=== PATIENT | female | born 1955 | race Caucasian/White ===

== ENCOUNTER → 2016-05-29 | Outpatient (CLI) | payer MEDICARE, MEDICAID ==
[~2016-05-29] MED LIST: /ESCI20TA OR; /QUIN20TA OR; ATEN100T OR; DARV100T OR; FLEXERIL OR; HYDR25TA6 OR; IBUP600T OR; MELOPOW PO; OMEP20TA7 OR; lovaza OR; meloxicam OR; percocet OR; quinapril OR; travatan OU
--- NOTE | 2016-05-30 17:18 | ECGEPIP ---
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
--- NOTE | 2016-06-01 21:00 | HOLTMON ---
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 Sinus rhythm with normal AV conduction was the baseline mechanism. Average HR was 63 bpm, minimum HR 51 bpm and peak HR 109bpm. There were no pauses. Rare isolated PVC's and occasional PAC's including 9 beat run of slow atrial tachycardia were present. Patient reported single episode of dyspnea and single episode of chest discomfort. Both corresponded to sinus rhythm. Relatively normal Holter monitor. Electronically Signed On 06-01-2016 20:59:32 EST by Allegra Ga
== END | disposition home or self-care (01) ==
LOC: M EKG 11:10
PROVIDERS: ATTEND Family Medicine
DX: R00.2 Palpitations (principal); R94.31 Abnormal electrocardiogram [ECG] [EKG]

== ENCOUNTER → 2017-01-11 | Outpatient (CLI) | payer MEDICARE, MEDICAID ==
[2017-01-11 10:45] LABS: MEAN CORPUSCULAR VOLUME 85.7 fl (80.0-96.0); RED CELL DISTRIBUTION WIDTH 13.3 % (11.5-14.5); WHITE BLOOD COUNT 6.5 K/mm3 (4.0-10.0)
[2017-01-11 11:04] LABS: ALBUMIN 3.7 GM/DL (3.2-5.2); ALBUMIN/GLOBULIN RATIO 0.88 (1.00-1.93); BILIRUBIN,TOTAL 0.6 MG/DL (0.2-1.0); CALCIUM LEVEL 9.6 MG/DL (8.8-10.2); CREATININE FOR GFR 1.05 MG/DL (0.55-1.02); GLOMERULAR FILTRATION RATE 56.5 (>45); POTASSIUM SERUM 3.6 MEQ/L (3.5-5.1); TOTAL PROTEIN 7.9 GM/DL (6.4-8.2)
== END ==
LOC: M LAB 09:53
PROVIDERS: ATTEND Family Medicine
DX: E11.9 Type 2 diabetes mellitus without complications (principal)

== ENCOUNTER 2017-07-08 19:32 | Emergency (ER) | payer MEDICARE, MEDICAID | END 2017-07-08 21:23 | disposition left against medical advice (07) | LOC: M ED 19:32 | DX: Z53.21 Procedure and treatment not carried out due to patient leaving prior to being seen by health care provider (principal) ==

== ENCOUNTER → 2017-11-08 | Outpatient (CLI) | payer MEDICARE, MEDICAID ==
[2017-11-08 09:50] LABS: BASO % 0.7 % (0.0-1.0); EOS # 0.2 10^3/uL (0.0-0.50); EOS % 3.6 % (0.0-3.0); HEMATOCRIT 40.4 % (36.0-47.0); HEMOGLOBIN 13.6 g/dl (12.0-15.5); IMMATURE GRANULOCYTE % 0.2 % (0-3.0); LYMPH # 2.1 10^3/uL (1.5-4.5); MEAN CORPUSCULAR HEMOGLOBIN 29.2 pg (27.0-33.0); MEAN CORPUSCULAR HGB CONC 33.7 g/dl (32.0-36.5); MEAN CORPUSCULAR VOLUME 86.7 fl (80.0-96.0); MONO # 0.3 10^3/uL (0.0-0.8); MONO % 5.6 % (0.0-5.0); NEUTROPHILS # 3.3 10^3/uL (1.8-7.7); NEUTROPHILS % 54.9 % (36.0-66.0); PLATELET COUNT, AUTOMATED 223 10^3/uL (150-450); RED BLOOD COUNT 4.66 10^6/uL (4.00-5.40); RED CELL DISTRIBUTION WIDTH 12.8 % (11.5-14.5); WHITE BLOOD COUNT 6.1 10^3/uL (4.0-10.0)
[2017-11-08 10:12] LABS: ESTIMATED AVERAGE GLUCOSE 100 MG/DL (60-110); HEMOGLOBIN A1c 5.1 %
[2017-11-08 10:44] LABS: ALBUMIN 3.4 GM/DL (3.2-5.2); ALBUMIN/GLOBULIN RATIO 0.92 (1.00-1.93); ALKALINE PHOSPHATASE 44 U/L (45-117); ALT/SGPT 35 U/L (12-78); ANION GAP 9 MEQ/L (8-16); AST/SGOT 18 U/L (7-37); BILIRUBIN,TOTAL 0.4 MG/DL (0.2-1.0); BLOOD UREA NITROGEN 19 MG/DL (7-18); CARBON DIOXIDE LEVEL 30 MEQ/L (21-32); CHLORIDE LEVEL 104 MEQ/L (98-107); CHOLESTEROL LEVEL 193 MG/DL (<200); CHOLESTEROL RISK RATIO 6.225 (<5); CREATININE FOR GFR 0.82 MG/DL (0.55-1.30); GLOMERULAR FILTRATION RATE > 60.0 (>45); GLUCOSE, FASTING 88 MG/DL (70-100); HDL CHOLESTEROL 31 MG/DL (>40); LDL CHOLESTEROL 120.4 MG/DL (<100); NON-HDL-C 162 MG/DL; POTASSIUM SERUM 3.8 MEQ/L (3.5-5.1); SODIUM LEVEL 143 MEQ/L (136-145); TOTAL PROTEIN 7.1 GM/DL (6.4-8.2); TRIGLYCERIDES LEVEL 208 MG/DL (<150)
[2017-11-08 10:49] LABS: MALB URINE SIEMENS 11.4 MG/L; MAU/CREAT RATIO 8.5 MCG/MG (0.0-30.0)
== END ==
LOC: M LAB 09:13
DX: E11.9 Type 2 diabetes mellitus without complications (principal)
CPT/HCPCS: 80053

== ENCOUNTER → 2018-04-20 | Outpatient (CLI) | payer MEDICARE, MEDICAID ==
[~2018-04-20] MED LIST changes: -/ESCI20TA OR; -/QUIN20TA OR; -ATEN100T OR; -DARV100T OR; +E-Z-GAS II EFFERVESCENT PACKET (SODIUM BICARB./CITRIC ACID/SIMETHICONE) As Ordered; +E-Z-HD 98% w/w 340GM SUSP BTL As Ordered; +E-Z-PAQUE 96% w/w SUSP 176GM BTL As Ordered; -FLEXERIL OR; -HYDR25TA6 OR; -IBUP600T OR; -MELOPOW PO; -OMEP20TA7 OR; -lovaza OR; -meloxicam OR; -percocet OR; -quinapril OR; -travatan OU
== END ==
LOC: M RAD 08:24
DX: R13.10 Dysphagia, unspecified (principal); K21.9 Gastro-esophageal reflux disease without esophagitis; R10.13 Epigastric pain
CPT/HCPCS: 74220

== ENCOUNTER 2018-05-15 11:25 | Day surgery (SDC) | payer MEDICARE, MEDICAID ==
[~2018-05-15] VITALS: Ht 165.1 cm; Wt 112.4 kg
[~2018-05-15 11:25] MED LIST changes: +/ESCI20TA OR; +/QUIN20TA OR; +ATEN100T OR; +ATEN100T PO; +CYCL10TA PO; +DARV100T OR; -E-Z-GAS II EFFERVESCENT PACKET (SODIUM BICARB./CITRIC ACID/SIMETHICONE) As Ordered; -E-Z-HD 98% w/w 340GM SUSP BTL As Ordered; -E-Z-PAQUE 96% w/w SUSP 176GM BTL As Ordered; +FLEXERIL OR; +HYDR25TA6 OR; +HYDR25TAB PO; +IBUP600T OR; +LEXA1TAB PO; +MELO15TA28 PO; +MELOPOW PO; +OMEP20TA7 OR; +OMEP40CA2 PO; +PERC5TAB12 PO; +QUIN1TAB3 PO; +TRAM50TA2 PO; +VITATAB11 PO; +lovaza OR; +meloxicam OR; +percocet OR; +quinapril OR; +travatan OU
[2018-05-15] MEDS ORDERED: NS 1,000 ML IV ONE (12:00)
[2018-05-15] MEDS ORDERED: LIDOCAINE 2% INJ 100 MG/5 ML SDV (FOR ANES.) As Ordered ONE (12:19)
[2018-05-15] MEDS ORDERED: PROPOFOL 200 MG/20 ML VIAL As Ordered ONE ×2 (12:19→12:50)
--- NOTE | 2018-05-15 12:39 | ROOR ---
Patient Name: Rhonda Shaikh Procedure Date: 05/15/2018 12:17 PM Date of : 1955 Age: 62 Room: [facility] Gender: Female Note Status: Finalized Procedure: Upper GI endoscopy Indications: Dysphagia, Failure to respond to medical treatment Providers: Erick KWONG MD Referring MD: Ran Livingston MD Requesting Provider: Medicines: Monitored Anesthesia Care Complications: No immediate complications. Procedure: Pre-Anesthesia Assessment: - The heart rate, respiratory rate, oxygen saturations, blood pressure, adequacy of pulmonary ventilation, and response to care were monitored throughout the procedure. The Endoscope was introduced through the mouth, and advanced to the second part of duodenum. The upper GI endoscopy was accomplished without difficulty. The patient tolerated the procedure well. Findings: The examined esophagus was normal. A single 5 mm sessile polyp with no stigmata of recent bleeding was found in the gastric fundus. The polyp was removed with a cold snare. Resection and retrieval were complete. The exam of the stomach was otherwise normal. (large volume, Bilious fluid) The examined duodenum was normal. The scope was withdrawn. Dilation was performed in the entire esophagus with a Hamilton dilator with no resistance at 54 Fr. Impression: - Normal esophagus. - A single gastric polyp. Resected and retrieved. - The stomach is otherwise normal. - Normal examined duodenum. - Empiric dilation performed in the entire esophagus. Recommendation: - Observe patient's clinical course. - Use Prilosec (omeprazole) 40 mg PO daily. - Follow an antireflux regimen. - Eat smaller, more frequent meals throughout the day. - Low fat diet. - Liquid/soft foods are tolerated better than solid foods. - Low fiber/well cooked vegetables are tolerated better than high fiber/fibrous foods/raw vegetables. - Avoid medications that inhibit gastric/intestinal motility such as narcotic medications. Erick Kwong MD Erick KWONG MD 05/15/2018 12:39:10 PM This report has been signed electronically. Number of Addenda: 0 Note Initiated On: 05/15/2018 12:17 PM Estimated Blood Loss: Estimated blood loss: none.
--- NOTE | 2018-05-15 13:00 | ROOR ---
Patient Name: Rhonda Shaikh Procedure Date: 05/15/2018 12:18 PM Date of : 1955 Age: 62 Room: [facility] Gender: Female Note Status: Finalized Procedure: Colonoscopy Indications: High risk colon cancer surveillance: Personal history of colonic polyps, Last colonoscopy: February 2015 Providers: Erick KWONG MD Referring MD: Ran Livingston MD Requesting Provider: Medicines: Monitored Anesthesia Care Complications: No immediate complications. Procedure: Pre-Anesthesia Assessment: - The heart rate, respiratory rate, oxygen saturations, blood pressure, adequacy of pulmonary ventilation, and response to care were monitored throughout the procedure. The Colonoscope was introduced through the anus and advanced to the terminal ileum, with identification of the appendiceal orifice and IC valve. The colonoscopy was performed without difficulty. The patient tolerated the procedure well. The quality of the bowel preparation was good. Findings: The perianal and digital rectal examinations were normal. Five sessile polyps were found in the proximal transverse colon, hepatic flexure, ascending colon and cecum. The polyps were 3 to 7 mm in size. These polyps were removed with a cold snare. Resection and retrieval were complete. Mild sigmoid diverticulosis and small internal hemorrhoids. The exam was otherwise without abnormality on direct and retroflexion views. (bulbous/lipomatous ileocecal valve) Impression: - Five 3 to 7 mm polyps in the proximal transverse colon, at the hepatic flexure, in the ascending colon and in the cecum, removed with a cold snare. Resected and retrieved. - Mild sigmoid diverticulosis and small internal hemorrhoids. - The examination was otherwise normal on direct and retroflexion views. Recommendation: - Repeat colonoscopy in 3 years for surveillance. Erick Kwong MD Erick KWONG MD 05/15/2018 1:00:14 PM This report has been signed electronically. Number of Addenda: 0 Note Initiated On: 05/15/2018 12:18 PM Estimated Blood Loss: Estimated blood loss: none.
[2018-05-15 13:20] VITALS: BP 110/58
== END 2018-05-15 13:20 | disposition home or self-care (01) ==
LOC: M OPP 11:25
PROVIDERS: ATTEND Internal Medicine Gastroenterology
DX: Z12.11 Encounter for screening for malignant neoplasm of colon (principal); Z86.010 Personal history of colon polyps; D12.3 Benign neoplasm of transverse colon; D12.2 Benign neoplasm of ascending colon; D12.0 Benign neoplasm of cecum; K31.7 Polyp of stomach and duodenum; R13.10 Dysphagia, unspecified; K57.30 Diverticulosis of large intestine without perforation or abscess without bleeding; G47.30 Sleep apnea, unspecified; K44.9 Diaphragmatic hernia without obstruction or gangrene; K21.9 Gastro-esophageal reflux disease without esophagitis; Z80.0 Family history of malignant neoplasm of digestive organs; Z88.0 Allergy status to penicillin; Z88.5 Allergy status to narcotic agent; Z88.8 Allergy status to other drugs, medicaments and biological substances

== ENCOUNTER → 2018-10-24 | Outpatient (CLI) | payer MEDICARE, MEDICAID ==
[~2018-10-24] MED LIST changes: -/ESCI20TA OR; -/QUIN20TA OR; +ACCU1TAB2 OR; +LEXA1TAB2 OR
[2018-10-24 14:38] LABS: BASO % 0.5 % (0.0-1.0); EOS # 0.2 10^3/uL (0.0-0.50); EOS % 2.5 % (0.0-3.0); HEMOGLOBIN 14.9 g/dl (12.0-15.5); LYMPH # 2.7 10^3/uL (1.5-4.5); LYMPH % 41.6 % (24.0-44.0); MEAN CORPUSCULAR HGB CONC 34.7 g/dl (32.0-36.5); MEAN CORPUSCULAR VOLUME 86.7 fl (80.0-96.0); MONO # 0.5 10^3/uL (0.0-0.8); MONO % 7.2 % (0.0-5.0); NEUTROPHILS # 3.1 10^3/uL (1.8-7.7); NEUTROPHILS % 47.9 % (36.0-66.0); PLATELET COUNT, AUTOMATED 255 10^3/uL (150-450); RED BLOOD COUNT 4.96 10^6/uL (4.00-5.40); WHITE BLOOD COUNT 6.5 10^3/uL (4.0-10.0)
[2018-10-24 15:04] LABS: ALBUMIN 3.5 GM/DL (3.2-5.2); ALT/SGPT 28 U/L (12-78); BILIRUBIN,TOTAL 0.5 MG/DL (0.2-1.0); BLOOD UREA NITROGEN 16 MG/DL (7-18); CALCIUM LEVEL 9.1 MG/DL (8.8-10.2); CARBON DIOXIDE LEVEL 29 MEQ/L (21-32); CHLORIDE LEVEL 104 MEQ/L (98-107); CREATININE FOR GFR 0.78 MG/DL (0.55-1.30); GLOMERULAR FILTRATION RATE > 60.0 (>45); GLUCOSE, FASTING 103 MG/DL (70-100); POTASSIUM SERUM 3.9 MEQ/L (3.5-5.1); SODIUM LEVEL 140 MEQ/L (136-145); TOTAL PROTEIN 7.4 GM/DL (6.4-8.2)
[2018-10-24 17:20] LABS: HEMOGLOBIN A1c 5.3 %
== END ==
LOC: M LAB 14:09
PROVIDERS: ATTEND Family Medicine
DX: E11.9 Type 2 diabetes mellitus without complications (principal); I10 Essential (primary) hypertension

== ENCOUNTER 2019-05-17 21:04 | Emergency (ER) | payer MEDICARE, MEDICAID ==
[~2019-05-17] VITALS: Ht 165.1 cm; Wt 134.1 kg
[~2019-05-17 21:04] MED LIST changes: -OMEP40CA2 PO; +OMEP40CA97 PO
[2019-05-17] MEDS ORDERED: VENL75CA47 PO (21:13)
[2019-05-17 23:15] LABS: BASO % 0.2 % (0.0-1.0); EOS # 0.1 10^3/uL (0.0-0.5); HEMATOCRIT 43.2 % (36.0-47.0); HEMOGLOBIN 14.1 g/dl (12.0-15.5); LYMPH # 1.3 10^3/uL (1.5-5.0); LYMPH % 20.8 % (24.0-44.0); MEAN CORPUSCULAR HGB CONC 32.6 g/dl (32.0-36.5); MEAN CORPUSCULAR VOLUME 88.7 fl (80.0-96.0); MONO # 0.4 10^3/uL (0.0-0.8); MONO % 6.8 % (0.0-5.0); NEUTROPHILS # 4.5 10^3/uL (1.5-8.5); PLATELET COUNT, AUTOMATED 232 10^3/uL (150-450); RED BLOOD COUNT 4.87 10^6/uL (4.00-5.40); WHITE BLOOD COUNT 6.3 10^3/uL (4.0-10.0)
[2019-05-17 23:32] LABS: ALBUMIN 3.4 GM/DL (3.2-5.2); ALT/SGPT 25 U/L (12-78); BILIRUBIN,DIRECT 0.2 MG/DL (0.0-0.2); BILIRUBIN,TOTAL 0.9 MG/DL (0.2-1.0); BLOOD UREA NITROGEN 9 MG/DL (7-18); C REACTIVE PROTEIN QUANTITATIV 3.34 MG/DL (0.00-0.30); CALCIUM LEVEL 8.8 MG/DL (8.8-10.2); CARBON DIOXIDE LEVEL 29 MEQ/L (21-32); CHLORIDE LEVEL 99 MEQ/L (98-107); CREATININE FOR GFR 0.91 MG/DL (0.55-1.30); GLOMERULAR FILTRATION RATE > 60.0 (>45); GLUCOSE, FASTING 110 MG/DL (70-100); POTASSIUM SERUM 3.5 MEQ/L (3.5-5.1); SODIUM LEVEL 136 MEQ/L (136-145); TOTAL PROTEIN 7.3 GM/DL (6.4-8.2)
[2019-05-17 23:49] LABS: INFLUENZA A AMPLIFICATION NEGATIVE (NEGATIVE); INFLUENZA B AMPLIFICATION NEGATIVE (NEGATIVE)
[2019-05-18] MEDS ORDERED: NS 1,000 ML IV ONE (00:30)
[2019-05-18] MEDS ORDERED: ACETAMINOPHEN TAB 650MG DOSE (2X325MG) PO ONE (00:30)
[2019-05-18 00:34] LABS: ERYTHROCYTE SEDIMENTATION RATE 54 mm/hr (0-30)
[2019-05-18 01:46] VITALS: BP 104/59
[2019-05-18] MEDS ORDERED: METAL LOCK LOOP XX ONE (01:46)
[2019-05-18] MEDS ORDERED: CIPROFLOXACIN 500 MG TAB PO ONE (02:30)
[2019-05-18] MEDS ORDERED: CIPR-249 PO (02:32)
--- NOTE | 2019-05-18 08:01 | REP ---
Clinical: Pain and swelling. Technique: AP, lateral, bilateral oblique views of the right first toe. Findings: Soft tissue swelling is appreciated along with underlying age-related degenerative changes. No acute fracture dislocation. No subcutaneous emphysema. No periosteal reaction. Impression: Swelling. Electronically Signed by David Burgos MD 05/18/2019 07:53 A
== END 2019-05-18 02:50 | disposition home or self-care (01) ==
LOC: M ED 21:04
DX: S99.921A Unspecified injury of right foot, initial encounter (principal); X58.XXXA Exposure to other specified factors, initial encounter; Y92.89 Other specified places as the place of occurrence of the external cause; N39.0 Urinary tract infection, site not specified; E11.9 Type 2 diabetes mellitus without complications; K21.9 Gastro-esophageal reflux disease without esophagitis; Z79.899 Other long term (current) drug therapy; Z88.1 Allergy status to other antibiotic agents; Z88.5 Allergy status to narcotic agent

== ENCOUNTER 2019-05-30 00:50 | Emergency (ER) | payer MEDICARE, MEDICAID ==
[~2019-05-30] VITALS: Ht 165.1 cm; Wt 138.0 kg
[~2019-05-30 00:50] MED LIST changes: +CIPR-249 PO; +VENL75CA47 PO
[2019-05-30 01:31] LABS: BASO % 0.2 % (0.0-1.0); EOS # 0.1 10^3/uL (0.0-0.5); EOS % 0.5 % (0.0-3.0); HEMATOCRIT 41.4 % (36.0-47.0); HEMOGLOBIN 13.8 g/dl (12.0-15.5); LYMPH # 0.8 10^3/uL (1.5-5.0); LYMPH % 6.2 % (24.0-44.0); MEAN CORPUSCULAR HEMOGLOBIN 29.1 pg (27.0-33.0); MEAN CORPUSCULAR HGB CONC 33.3 g/dl (32.0-36.5); MEAN CORPUSCULAR VOLUME 87.2 fl (80.0-96.0); MONO # 0.5 10^3/uL (0.0-0.8); MONO % 3.9 % (0.0-5.0); NEUTROPHILS # 11.9 10^3/uL (1.5-8.5); NEUTROPHILS % 88.9 % (36.0-66.0); PLATELET COUNT, AUTOMATED 234 10^3/uL (150-450); RED BLOOD COUNT 4.75 10^6/uL (4.00-5.40); WHITE BLOOD COUNT 13.3 10^3/uL (4.0-10.0)
[2019-05-30 01:43] LABS: ALBUMIN 3.3 GM/DL (3.2-5.2); ALT/SGPT 22 U/L (12-78); BILIRUBIN,DIRECT 0.2 MG/DL (0.0-0.2); BILIRUBIN,TOTAL 0.7 MG/DL (0.2-1.0); BLOOD UREA NITROGEN 9 MG/DL (7-18); CALCIUM LEVEL 8.9 MG/DL (8.8-10.2); CARBON DIOXIDE LEVEL 26 MEQ/L (21-32); CHLORIDE LEVEL 100 MEQ/L (98-107); CREATININE FOR GFR 0.95 MG/DL (0.55-1.30); GLOMERULAR FILTRATION RATE > 60.0 (>45); GLUCOSE, FASTING 137 MG/DL (70-100); LIPASE 75 U/L (73-393); POTASSIUM SERUM 3.4 MEQ/L (3.5-5.1); SODIUM LEVEL 137 MEQ/L (136-145); TOTAL PROTEIN 7.5 GM/DL (6.4-8.2)
[2019-05-30] MEDS: GASTROGRAFIN SOLUTION 30ML PO SCH ×2 (01:45→01:52)
[2019-05-30 01:56] LABS: APPEARANCE, URINE HAZY (CLEAR); BACTERIA, URINE AUTO NEGATIVE (NEGATIVE); BILIRUBIN, URINE AUTO NEGATIVE (NEGATIVE); BLOOD, URINE BLOOD 1+ (NEGATIVE); COLOR, URINE YELLOW (YELLOW); GLUCOSE, URINE (UA) AUTO NEGATIVE (NEGATIVE); KETONE, URINE AUTO NEGATIVE (NEGATIVE); LEUKOCYTE ESTERASE, URINE AUTO 3+ (NEGATIVE); MUCUS, URINE SMALL (NEGATIVE); NITRITE, URINE AUTO NEGATIVE (NEGATIVE); PROTEIN, URINE AUTO NEGATIVE (NEGATIVE); RBC, URINE AUTO 10 /HPF (0-3); SPECIFIC GRAVITY URINE AUTO 1.021 (1.002-1.035); SQUAMOUS EPITHELIAL CELL UR AU 9 /HPF (0-6); UROBILINOGEN, URINE AUTO 0.2 mg/dL (0.0-2.0); WBC, URINE AUTO 19 /HPF (0-3)
[2019-05-30] MEDS ORDERED: NS 1,000 ML IV ONE (02:15)
[2019-05-30] MEDS ORDERED: ISOVUE-370 76% 100ML VIAL (Q9967) As Ordered ONE (03:19)
--- NOTE | 2019-05-30 04:24 | REPVR ---
PROCEDURE INFORMATION: Exam: CT Abdomen And Pelvis With Contrast Exam date and time: 05/30/2019 3:31 AM Age: 63 years old Clinical indication: Abdominal pain; Generalized TECHNIQUE: Imaging protocol: Computed tomography of the abdomen and pelvis with intravenous contrast. Radiation optimization: All CT scans at this facility use at least one of these dose optimization techniques: automated exposure control; mA and/or kV adjustment per patient size (includes targeted exams where dose is matched to clinical indication); or iterative reconstruction. Contrast material: ISOVUE 370; Contrast volume: 100 ml; Contrast route: IV; COMPARISON: No relevant prior studies available. FINDINGS: Mediastinum: Minimal hiatal hernia. Liver: The liver attenuation is 51 Hounsfield units and the spleen is 82 Hounsfield units. Gallbladder and bile ducts: Status post cholecystectomy. Pancreas: Normal. No ductal dilation. Spleen: Normal. No splenomegaly. Adrenals: Normal. No mass. Kidneys and ureters: Normal. No hydronephrosis. Stomach and bowel: Minimal distal colonic diverticulosis without diverticulitis. Appendix: A normal appendix is seen. Intraperitoneal space: Unremarkable. No free air. No significant fluid collection. Retroperitoneal space: There are some focal areas of thickening of the extraperitoneal fascia along the lateral pelvic sidewalls, right greater than left with some associated induration of peritoneal fat on the right anterior to the left external iliac vasculature of uncertain etiology. This is lateral to the right ovary which is within normal limits. Findings may reflect an area of fat infarct. Epiploic appendagitis is not excluded. Vasculature: Unremarkable. No abdominal aortic aneurysm. Lymph nodes: Unremarkable. No enlarged lymph nodes. Bladder: Unremarkable as visualized. Reproductive: See Retroperitoneal Space Finding. Bones/joints: Degenerative disc changes of the lumbar spine with associated facet arthropathy. Soft tissues: Small fat filled umbilical hernia IMPRESSION: 1. Focal areas of thickened extraperitoneal fascia along the lateral pelvic sidewalls, right greater than left with some adjacent induration of fat at one focus anterior to the right external iliac vasculature of uncertain etiology. Findings may reflect an area of fat infarct or possibly epiploic appendagitis. 2. Minimal distal colonic diverticulosis without diverticulitis. 3. Status post cholecystectomy. Electronically signed by: Alfredo Mejia On 05/30/2019 04:23:36 AM
[2019-05-30] MEDS ORDERED: METOCLOPRAMIDE INJ 10MG/2ML VIAL (J2765) IV ONE (05:30)
[2019-05-30] MEDS ORDERED: MORPHINE 4 MG/ML 1ML VIAL/SYRINGE (J2270) IV ONE (05:30)
[2019-05-30] MEDS ORDERED: METOCLOPRAMIDE INJ 10MG/2ML VIAL (J2765) As Ordered ONE (05:32)
[2019-05-30] MEDS ORDERED: REGL10TA6 PO (05:35)
[2019-05-30 05:51] VITALS: BP 130/74
--- NOTE | 2019-05-30 17:14 | ED PDOC ---
Post-Departure Follow-Up dr herrera faxed formal report of ct abd/p for fu Neha Avelar MD May 30, 2019 17:14
[2019-05-30] MEDS ORDERED: EQL50TAB2 PO (21:13)
[2019-05-30] MEDS ORDERED: METO10TA2 PO (21:13)
== END 2019-05-30 05:52 | disposition home or self-care (01) ==
LOC: M ED 00:50
DX: G89.18 Other acute postprocedural pain (principal); I10 Essential (primary) hypertension; F33.9 Major depressive disorder, recurrent, unspecified; K21.9 Gastro-esophageal reflux disease without esophagitis; G89.29 Other chronic pain; M54.9 Dorsalgia, unspecified; E66.8 Other obesity; Z79.899 Other long term (current) drug therapy; Z88.1 Allergy status to other antibiotic agents; Z88.5 Allergy status to narcotic agent; Z88.8 Allergy status to other drugs, medicaments and biological substances

== ENCOUNTER 2019-05-30 17:53 | Inpatient (IN) | payer MEDICARE, MEDICAID ==
[~2019-05-30] VITALS: Ht 165.1 cm; Wt 136.4 kg
[2019-05-30] MEDS: DOCUSATE SODIUM 100 MG CAP PO SCH (01:30)
[2019-05-30] MEDS: QUINAPRIL 20 MG TAB PO SCH (01:30)
[~2019-05-30 17:53] MED LIST changes: +REGL10TA6 PO
[2019-05-30] MEDS ORDERED: NS 1,000 ML IV SCH (18:17)
[2019-05-30] MEDS ORDERED: ACETAMINOPHEN TAB 650MG DOSE (2X325MG) PO ONE (18:30)
[2019-05-30 18:36] LABS: BASO % 0.2 % (0.0-1.0); HEMATOCRIT 38.2 % (36.0-47.0); HEMOGLOBIN 13.1 g/dl (12.0-15.5); LYMPH # 0.8 10^3/uL (1.5-5.0); LYMPH % 5.2 % (24.0-44.0); MEAN CORPUSCULAR HEMOGLOBIN 30.2 pg (27.0-33.0); MEAN CORPUSCULAR HGB CONC 34.3 g/dl (32.0-36.5); MONO # 0.5 10^3/uL (0.0-0.8); NEUTROPHILS # 14.8 10^3/uL (1.5-8.5); NEUTROPHILS % 90.9 % (36.0-66.0); PLATELET COUNT, AUTOMATED 225 10^3/uL (150-450); RED BLOOD COUNT 4.34 10^6/uL (4.00-5.40); WHITE BLOOD COUNT 16.3 10^3/uL (4.0-10.0)
[2019-05-30 18:50] LABS: INR 1.13; PROTHROMBIN TIME 14.2 SECONDS (11.8-14.0)
[2019-05-30 18:51] LABS: PARTIAL THROMBOPLASTIN TIME 28.9 SECONDS (25.0-38.4)
[2019-05-30 18:52] LABS: APPEARANCE, URINE CLEAR (CLEAR); BACTERIA, URINE AUTO NEGATIVE (NEGATIVE); BILIRUBIN, URINE AUTO NEGATIVE (NEGATIVE); BLOOD, URINE BLOOD 2+ (NEGATIVE); COLOR, URINE YELLOW (YELLOW); GLUCOSE, URINE (UA) AUTO NEGATIVE (NEGATIVE); KETONE, URINE AUTO NEGATIVE (NEGATIVE); LEUKOCYTE ESTERASE, URINE AUTO NEGATIVE (NEGATIVE); MUCUS, URINE SMALL (NEGATIVE); NITRITE, URINE AUTO NEGATIVE (NEGATIVE); PROTEIN, URINE AUTO 1+ mg/dL (NEGATIVE); RBC, URINE AUTO 10 /HPF (0-3); SPECIFIC GRAVITY URINE AUTO 1.018 (1.002-1.035); SQUAMOUS EPITHELIAL CELL UR AU 0 /HPF (0-6); UROBILINOGEN, URINE AUTO 0.2 mg/dL (0.0-2.0); WBC, URINE AUTO 1 /HPF (0-3)
[2019-05-30 18:57] LABS: ERYTHROCYTE SEDIMENTATION RATE 63 mm/hr (0-30)
[2019-05-30 19:07] LABS: INFLUENZA A AMPLIFICATION NEGATIVE (NEGATIVE); INFLUENZA B AMPLIFICATION NEGATIVE (NEGATIVE)
[2019-05-30 19:11] LABS: ALBUMIN 2.9 GM/DL (3.2-5.2); ALT/SGPT 19 U/L (12-78); BILIRUBIN,DIRECT 0.2 MG/DL (0.0-0.2); BLOOD UREA NITROGEN 11 MG/DL (7-18); CALCIUM LEVEL 8.4 MG/DL (8.8-10.2); CARBON DIOXIDE LEVEL 28 MEQ/L (21-32); CHLORIDE LEVEL 97 MEQ/L (98-107); CK-MB VALUE MASS < 1.0 NG/ML (<3.6); CPK CREATINE PHOSPHOKINASE 103 U/L (26-192); CREATININE FOR GFR 0.92 MG/DL (0.55-1.30); GLOMERULAR FILTRATION RATE > 60.0 (>45); GLUCOSE, FASTING 127 MG/DL (70-100); MB/CK RELATIVE INDEX 0.97 (< OR =4); POTASSIUM SERUM 3.6 MEQ/L (3.5-5.1); SODIUM LEVEL 135 MEQ/L (136-145); TROPONIN I < 0.02 NG/ML (< 0.10)
--- NOTE | 2019-05-30 20:17 | REPVR ---
PROCEDURE INFORMATION: Exam: XR Chest, 1 View Exam date and time: 05/30/2019 6:17 PM Age: 63 years old Clinical indication: Fever TECHNIQUE: Imaging protocol: XR of the chest Views: 1 view. COMPARISON: No relevant prior studies available. FINDINGS: Lungs: Unremarkable. No consolidation. Pleural space: Unremarkable. No pleural effusion. No pneumothorax. Heart/Mediastinum: Unremarkable. No cardiomegaly. Bones/joints: Unremarkable. IMPRESSION: No acute findings. Electronically signed by: Jose Mclaughlin On 05/30/2019 20:17:14 PM
--- NOTE | 2019-05-30 20:18 | REPVR ---
PROCEDURE INFORMATION: Exam: US Duplex Right Lower Extremity Veins, Limited Exam date and time: 05/30/2019 7:49 PM Age: 63 years old Clinical indication: Pain; Leg, upper and leg, lower and toes; Right; Additional info: Rle pain, swelling, R/O dvt TECHNIQUE: Imaging protocol: Real-time Duplex ultrasound of the Right Lower Extremity with 2-D prado scale, color Doppler flow and spectral waveform analysis with image documentation. Limited exam was focused on the right lower extremity veins. COMPARISON: No relevant prior studies available. FINDINGS: Right deep veins: Unremarkable. The common femoral, femoral, proximal profunda femoral and popliteal veins are patent without thrombus. Normal Doppler waveforms. Normal compressibility and/or augmentation response. Right superficial veins: Unremarkable. Saphenofemoral junction is patent without thrombus. Soft tissues: Unremarkable. IMPRESSION: No acute findings. No evidence of deep vein thrombosis. Electronically signed by: Jose Mclaughlin On 05/30/2019 20:18:07 PM
[2019-05-30] MEDS ORDERED: GLUCOSE 4 GM CHEW TABLET PO PRN (20:45)
[2019-05-30] MEDS ORDERED: GLUCAGON FOR INJ 1 MG VIAL (J1610) SC PRN (20:45)
[2019-05-30] MEDS ORDERED: MAALOX 30 ML SUSP *UDC PO PRN (20:45)
[2019-05-30] MEDS ORDERED: ceFAZolin SOD 1 GM in D5W MINI-BAG PLUS 50 ML IV ONE (20:45)
[2019-05-30] MEDS ORDERED: DEXTROSE 50% 50 ML SYRINGE IV PRN (20:45)
[2019-05-30] MEDS ORDERED: MOM 30ML SUSPENSION UDC PO PRN (20:45)
[2019-05-30] MEDS ORDERED: HumaLOG INSULIN (NovoLOG) PER UNIT SC SCH (21:00)
[2019-05-30] MEDS: NS 1,000 ML IV SCH (21:01)
[2019-05-30] MEDS ORDERED: METO10TA2 PO (21:13)
[2019-05-30] MEDS ORDERED: EQL50TAB2 PO (21:13)
[2019-05-30 21:24] LABS: HEMOGLOBIN A1c 5.6 %
--- NOTE | 2019-05-30 21:24 | ECGEPIP ---
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
[2019-05-30] MEDS ORDERED: PERCOCET 5MG/325MG TAB PO PRN (21:30)
[2019-05-30] MEDS ORDERED: METOCLOPRAMIDE 10 MG TAB PO PRN (21:30)
[2019-05-30] MEDS ORDERED: CYCLOBENZAPRINE 10 MG TAB PO PRN (21:30)
[2019-05-30] MEDS ORDERED: traMADol 50 MG TAB PO PRN (21:30)
--- NOTE | 2019-05-30 21:31 | HPEPDOC ---
[facility] Medical History & Physical Date of Admission May 30, 2019 Date of Service: May 30, 2019 Primary Care Physician: CAROLYN PARRA MD [facility] Attending Physician: URSULA BOSCH MD History and Physical TIME OF SERVICE: 8:50 PM CHIEF COMPLAINT: Fever HISTORY OF PRESENT ILLNESS: This is a 63-year-old female who presents to the [facility] with complaints of a fever as high as 103.7 per EMS. She was at the hospital last night complaining of right toe pain which she has had for about 1 month associated with right lower extremity redness, pain and swelling & nonbloody emesis. Last night while try to walk to the bathroom she felt groggy, fell down and hit her face. At her baseline she walks with a cane or walker. REVIEW OF SYSTEMS: 12 point review of systems negative except as listed in HPI PAST MEDICAL/ SURGICAL HISTORY: NIDDM Unsteady gait, uses a walker Recent UTI completed course of treatment Dyslipidemia Chronic hypertension Sleep apnea Depression / Anxiety GERD History of Nephrolithiasis Morbid obesity Chronic back pain/Status post L4-L5 laminectomy Status post cholecystectomy Status post Right carpal tunnel surgery Status post right knee arthroscopy Status post tubal ligation Status post uterine ablation Status post multiple D&Cs SOCIAL HISTORY: Former smoker FAMILY HISTORY: Hypertension Diabetes Glaucoma Cancer CVA CAD Thyroid disorder Pacemaker placement Colon cancer ALLERGIES: Please see below HOME MEDICATIONS: Please see below PHYSICAL EXAMINATION: VITAL SIGNS: Please see below GEN: well-nourished / well developed/ NAD INTEGUMENT: not flushed/ the right hallux is wrapped in a clean and dry dressing. The right lower leg is warm, red and has thickening of the subcutaneous skin extending from the right foot up to the anterior aspect of the right upper leg HEENT: NCAT / lips acyanotic /mucus membranes moist and pink CVS: RRR/NMRG/ no JVP LUNGS: lungs are clear to auscultation bilaterally on room air ABDOMEN: obese MSK/EXTREMITIES: range of motion intact in all 4 extremities NEURO: CN 2-12 are grossly intact / speech is not dysarthric PSYCH: alert and oriented to person place and time/ able to understand and follow all commands LABORATORY DATA: See below. IMAGING: X-ray of the right foot is pending Venous duplex of the right lower extremity " IMPRESSION: No acute findings. No evidence of deep vein thrombosis." MICROBIOLOGY: Please see below. ASSESSMENT: Ms. Shaikh is a 63 female with past medical history of NIDDM, hypertension, sleep apnea, dyslipidemia, anxiety and depression, and morbid obesity who is admitted for management of sepsis secondary to right lower extremity cellulitis. PLAN: 1. Sepsis secondary to right lower extremity cellulitis Predisposing factors cellulase include obesity, diabetes, and right toe wound SIRS criteria include Temp >101 / WBC >12 ESR and CRP were elevated Lactic acid is within normal limits NEW2S Score = 7 points = high risk = continuous monitoring Sepsis protocol has been initiated.she received Ancef and IV fluids Plan: admit to medical floor / telemetry / continue with Ancef and IV fluids/ fall precautions / elevate leg / wound care / f/u blood cx and final x-ray report / Acetaminophen PRN for fever / target MAP 65 to 70 / f/u Is and Os with target UOP of atleast 0.5 ml/kg/H / target serum glucose 140-180 while acutely ill 2. NIDDM / Dyslipidemia Plan: diabetic diet / f/u accuchecks & A1C / hypoglycemia protocol / sliding scale insulin 4. Chronic hypertension Plan:atenolol, quinapril 5. Chronic back pain Plan: Flexeril, meloxicam, Percocet, tramadol 6. Unsteady gait, Plan: Fall precautions pending PT eval 7. Sleep apnea Plan: own CPAP 8. Depression / Anxiety Plan: venlafaxine 9. GERD Plan: PPI 10. Morbid Obesity BMI is 50. This complicates her care. She has coexisting sleep apnea and diabetes Because her BMI is greater than 35, & she has diabetes, she is a candidate for bariatric surgery Plan: can f/u w PCP for STOP BANG questionnaire, washer repairman consult & referral for Bariatric Surgeon / recommend cardiovascular exercise for 40 min 4-5 days a week DVT PROPHYLAXIS: Lovenox DISPOSITION: Home after more than 2 midnight's stay Vital Signs Vital Signs Date Time Temp Pulse Resp B/P (MAP) Pulse Ox O2 Delivery O2 Flow Rate FiO2 05/30/19 20:50 100.2 05/30/19 20:00 69 20 111/59 (76) 93 Nasal Cannula 4.0 Laboratory Data Labs 24H Laboratory Tests 2 05/30/19 18:25: Immature Granulocyte % (Auto) 0.7, Neutrophils (%) (Auto) 90.9H, Lymphocytes (%) (Auto) 5.2L, Monocytes (%) (Auto) 3.0, Eosinophils (%) (Auto) 0.0, Basophils (%) (Auto) 0.2, Neutrophils # (Auto) 14.8H, Lymphocytes # (Auto) 0.8L, Monocytes # (Auto) 0.5, Eosinophils # (Auto) 0.0, Basophils # (Auto) 0.0, Nucleated Red Blood Cells % (auto) 0.0, Erythrocyte Sedimentation Rate 63H, Prothrombin Time 14.2H, Prothromb Time International Ratio 1.13, Activated Partial Thromboplast Time 28.9, Urine Color YELLOW, Urine Appearance CLEAR, Urine pH 6.0, Urine S pecific [place] 1.018, Urine Protein 1+H, Urine Glucose (Auto)(UA) NEGATIVE, Urine Ketones (Auto) NEGATIVE, Urine Blood 2+H, Urine Nitrite NEGATIVE, Urine Bilirubin NEGATIVE, Urine Urobilinogen 0.2, Urine Leukocyte Esterase (Auto) NEGATIVE, Urine WBC (Auto) 1, Urine RBC (Auto) 10H, Urine Hyaline Casts (Auto) 0, Urine Bacteria (Auto) NEGATIVE, Urine Squamous Epithelial Cells 0, Urine Mucus (Auto) SMALL, Urine Sperm (Auto) , Anion Gap 10, Glomerular Filtration Rate > 60.0, Estimated Mean Plasma Glucose 114H, Hemoglobin A1c 5.6, Lactic Acid Level 1.8, Calcium Level 8.4L, Total Bilirubin 1.0, Direct Bilirubin 0.2, Aspartate Amino Transf (AST/SGOT) 27, Alanine Aminotransferase (ALT/SGPT) 19, Alkaline Phosphatase 37L, Total Creatine Kinase 103, Creatine Kinase MB < 1.0, Creatine Kinase MB Relative Index 0.97, Troponin I < 0.02, C-Reactive Protein, Quantitative 9.60H, Total Protein 7.0, Albumin 2.9L, Albumin/Globulin Ratio 0.71L 05/30/19 18:26: Influenza Type A (RT-PCR) NEGATIVE, Influenza Type B (RT-PCR) NEGATIVE CBC/BMP Laboratory Tests 05/30/19 18:25 Microbiology Microbiology 05/30/19 Urine Culture, Received Pending 05/30/19 Blood Culture, Received Pending Home Medications Scheduled Atenolol (Atenolol) 100 Mg Tab, 100 MG PO DAILY Hydrochlorothiazide (Hydrochlorothiazide) 25 Mg Tab, 25 MG PO DAILY Meloxicam (Meloxicam) 15 Mg Tab, 15 MG PO DAILY Omeprazole (Omeprazole) 40 Mg Cap, 40 MG PO DAILY Quinapril Hcl (Quinapril HCl) 20 Mg Tab, 20 MG PO BID Venlafaxine HCl (Venlafaxine HCl ER) 75 Mg Cap.er.24h, 75 MG PO DAILY Vitamin B Complex (Vitamin B Complex) 1 Each Tablet, 1 TAB PO DAILY Scheduled PRN Cyclobenzaprine HCl (Cyclobenzaprine HCl) 10 Mg Tab, 10 MG PO TID PRN for MUSCLE SPASMS Metoclopramide HCl (Metoclopramide HCl) 10 Mg Tablet, 10 MG PO Q6H PRN for NAUSEA Oxycodone HCl/Acetaminophen (Percocet 5-325 mg Tablet) 1 Tab Tab, 1 TAB PO Q6H PRN for PAIN Tramadol HCl (Tramadol HCl) 50 Mg Tab, 50 MG PO PRN PRN for PAIN Allergies Coded Allergies: hydrocodone (Verified Allergy, Severe, Dyspnea, 05/17/19) codeine (Verified Allergy, Intermediate, Hives, 05/17/19) amitriptyline (Verified Adverse Reaction, Intermediate, Rapid heart rate, 05/17/19) erythromycin base (Verified Adverse Reaction, Mild, Vomiting , 05/17/19) A-FIB/CHADSVASC A-FIB History Current/History of A-Fib/PAF?: No Current PO Anticoag Therapy: URSULA Calixto MD May 30, 2019 21:31
[2019-05-30 22:30] VITALS: BP 108/54
[2019-05-31] MEDS: HumaLOG INSULIN (NovoLOG) PER UNIT SC SCH ×4 (01:30→18:00)
[2019-05-31 02:29] VITALS: BP 131/60
[2019-05-31] MEDS: ACETAMINOPHEN TAB 650MG DOSE (2X325MG) PO PRN ×2 (03:02→22:40)
[2019-05-31 06:00] VITALS: BP 141/66
[2019-05-31 06:55] LABS: HEMATOCRIT 35.5 % (36.0-47.0); HEMOGLOBIN 11.7 g/dl (12.0-15.5); MEAN CORPUSCULAR HEMOGLOBIN 29.6 pg (27.0-33.0); MEAN CORPUSCULAR VOLUME 89.9 fl (80.0-96.0); PLATELET COUNT, AUTOMATED 187 10^3/uL (150-450); RED BLOOD COUNT 3.95 10^6/uL (4.00-5.40); WHITE BLOOD COUNT 13.4 10^3/uL (4.0-10.0)
--- NOTE | 2019-05-31 07:09 | REP ---
Right foot series: Four views. History: Pain and swelling. Evaluate for osteomyelitis. Comparison right great toe series May 17, 2019. Findings: Four views of the right foot demonstrate calcific chronic Achilles tendinopathy. There is tibiotalar spurring. Plantar heel spurring is noted. No acute erosive changes seen. Osteoarthritis is seen at the first MTP joint. Impression: No acute bony erosive change. No soft tissue gas seen. Electronically Signed by Murray Alberts MD 05/31/2019 09:02 A
[2019-05-31 07:15] LABS: BLOOD UREA NITROGEN 12 MG/DL (7-18); CALCIUM LEVEL 8.4 MG/DL (8.8-10.2); CARBON DIOXIDE LEVEL 28 MEQ/L (21-32); CHLORIDE LEVEL 99 MEQ/L (98-107); CREATININE FOR GFR 0.91 MG/DL (0.55-1.30); GLOMERULAR FILTRATION RATE > 60.0 (>45); GLUCOSE, FASTING 120 MG/DL (70-100); POTASSIUM SERUM 2.6 MEQ/L (3.5-5.1); SODIUM LEVEL 135 MEQ/L (136-145)
[2019-05-31] MEDS ORDERED: HumaLOG INSULIN (NovoLOG) PER UNIT SC SCH ×2 (07:30)
[2019-05-31] MEDS: DOCUSATE SODIUM 100 MG CAP PO SCH ×2 (09:00→21:00)
[2019-05-31] MEDS ORDERED: POTASSIUM CHLORIDE 10 MEQ SR TABLET PO ONE (09:00)
[2019-05-31 09:29] VITALS: BP 133/56
[2019-05-31] MEDS: ENOXAPARIN 40 MG/0.4 ML SYRINGE (J1650) SC SCH (09:32)
[2019-05-31] MEDS: VENLAFAXINE **XR** 75MG CAPSULE PO SCH (09:32)
[2019-05-31] MEDS: atenoloL 50 MG TAB PO SCH (09:33)
[2019-05-31] MEDS: MELOXICAM (MOBIC) 7.5 MG TAB PO SCH (09:33)
[2019-05-31] MEDS: hydroCHLOROthiazide 25 MG TAB PO SCH (09:33)
[2019-05-31] MEDS: QUINAPRIL 20 MG TAB PO SCH ×2 (09:33→21:04)
[2019-05-31] MEDS: ceFAZolin SOD 1 GM in D5W MINI-BAG PLUS 50 ML IV SCH ×2 (09:34→18:01)
[2019-05-31] MEDS: OMEPRAZOLE 20 MG CAP PO SCH (09:34)
[2019-05-31] MEDS: KCL 10MEQ/100ML SWI (KRUN) 10 MEQ in IV 1 EA IV SCH ×4 (10:45→18:55)
[2019-05-31] MEDS: NS 1,000 ML IV SCH (13:25)
[2019-05-31 14:00] VITALS: BP 120/60
[2019-05-31] MEDS ORDERED: KCL 10MEQ IN STERILE WATER 100ML As Ordered ONE ×2 (15:23→18:52)
[2019-05-31] MEDS: SANTYL OINT 30GM TOP SCH (18:55)
--- NOTE | 2019-05-31 19:43 | IPNPDOC ---
Date Seen The patient was seen on 05/31/19. Progress Note SUBJECTIVE: 63 y.o female w/ PMH of DM, HTN, HLD, CHAVA & Morbid obesity is admitted for RLE cellulitis. She was admitted overnight, reports no change since admission at this time. She continues to experience RLE pain/swelling. She has no additional complaints at this time. She reports that her medical issues have resolved since she lost >100 lbs, she is no longer requiring treatment for DM, HLD or CHAVA. Although, she has regained ~60 lbs since then. She does not use CPAP at this time. She denies any SOB, CP, N/V/D or abdominal pain. 10 point ROS is negative except for above. OBJECTIVE PHYSICAL EXAMINATION: VITAL SIGNS: Please see below. GENERAL: Morbidly obese, no distress HEENT: moist mucous membranes CARDIOVASCULAR: S1, S2, no murmurs RESPIRATORY: diminished, clear to auscultation anteriorly ABDOMINAL: soft, non-tender, non-distended, +BS EXTREMITIES: RLE w/ significant erythema, swelling & tenderness to palpation up the the Knee NEUROLOGICAL: no focal deficits PSYCHOLOGICAL: calm LABORATORY DATA, IMAGING STUDIES, MICROBIOLOGY: Please see below. DVT prophylaxis ordered?: Yes ASSESSMENT AND PLAN: 63 y.o female w/ an extensive medical history which she no longer gets treated for since losing >100 lbs is admitted for RLE cellulitis. PROBLEMS: 1. RLE Cellulitis - continue Ancef, will monitor, cultures pending. 2. DM - HgA1c - <5.7 after losing weight, no longer requiring treatment, continue sliding scale coverage with meals & at bedtime. 3. HTN - continue Atenolol & HCTZ 4. CHAVA - has not used CPAP since weight loss, has regained ~60 lbs since then likely requires repeat sleep study given her current symptoms. Recommend outpatient follow up w/ Sleep physician. DVT Prophylaxis - Lovenox GI Prophylaxis - home PPI VS, I&O, 24H, Fishbone Vital Signs/I&O Vital Signs Date Time Temp Pulse Resp B/P (MAP) Pulse Ox O2 Delivery O2 Flow Rate FiO2 05/31/19 14:00 98.9 72 16 120/60 (80) 93 Nasal Cannula 1.0 I&O- Last 24 Hours up to 6 AM 05/31/19 06:00 Intake Total 1350 ml Output Total 250 ml Balance 1100 ml Laboratory Data 24H LABS Laboratory Tests 2 05/31/19 00:17: Bedside Glucose (Misc Panel) 108 05/31/19 06:05: Nucleated Red Blood Cells % (auto) 0.0, Anion Gap 8, Glomerular Filtration Rate > 60.0, Calcium Level 8.4L 05/31/19 11:29: Bedside Glucose (Misc Panel) 116H 05/31/19 17:38: Bedside Glucose (Misc Panel) 113 CBC/BMP Laboratory Tests 05/31/19 06:05 Microbiology Microbiology 05/31/19 Blood Culture, Received Pending 05/30/19 Urine Culture, Received Pending 05/30/19 Blood Culture - Preliminary, Resulted No growth after 24 hours . All specim... HILDA JETT MD May 31, 2019 19:43
[2019-05-31] MEDS ORDERED: ceFAZolin SOD 2 GM in IV 1 EA IV ONE (21:00)
[2019-05-31 22:00] VITALS: BP 124/57
[2019-06-01] MEDS: ceFAZolin SOD 1 GM in D5W MINI-BAG PLUS 50 ML IV SCH ×2 (00:39→09:26)
[2019-06-01 06:00] VITALS: BP 111/60
[2019-06-01] MEDS: HumaLOG INSULIN (NovoLOG) PER UNIT SC SCH ×2 (06:00)
[2019-06-01 06:07] LABS: HEMATOCRIT 36.6 % (36.0-47.0); HEMOGLOBIN 11.7 g/dl (12.0-15.5); MEAN CORPUSCULAR HEMOGLOBIN 28.8 pg (27.0-33.0); MEAN CORPUSCULAR VOLUME 90.1 fl (80.0-96.0); PLATELET COUNT, AUTOMATED 161 10^3/uL (150-450); RED BLOOD COUNT 4.06 10^6/uL (4.00-5.40); WHITE BLOOD COUNT 8.3 10^3/uL (4.0-10.0)
[2019-06-01 06:45] LABS: ALBUMIN 2.3 GM/DL (3.2-5.2); ALT/SGPT 15 U/L (12-78); BILIRUBIN,TOTAL 0.8 MG/DL (0.2-1.0); BLOOD UREA NITROGEN 12 MG/DL (7-18); CALCIUM LEVEL 8.7 MG/DL (8.8-10.2); CARBON DIOXIDE LEVEL 32 MEQ/L (21-32); CHLORIDE LEVEL 99 MEQ/L (98-107); GLOMERULAR FILTRATION RATE > 60.0 (>45); GLUCOSE, FASTING 98 MG/DL (70-100); MAGNESIUM LEVEL 2.3 MG/DL (1.8-2.4); PHOSPHORUS LEVEL 1.4 MG/DL (2.5-4.9); POTASSIUM SERUM 3.1 MEQ/L (3.5-5.1); SODIUM LEVEL 138 MEQ/L (136-145); TOTAL PROTEIN 6.9 GM/DL (6.4-8.2)
[2019-06-01] MEDS ORDERED: POTASSIUM CHLORIDE 10 MEQ SR TABLET PO ONE (08:15)
[2019-06-01] MEDS: DOCUSATE SODIUM 100 MG CAP PO SCH ×2 (09:00→21:00)
[2019-06-01 09:25] VITALS: BP 135/69
[2019-06-01] MEDS: ENOXAPARIN 40 MG/0.4 ML SYRINGE (J1650) SC SCH (09:26)
[2019-06-01] MEDS: hydroCHLOROthiazide 25 MG TAB PO SCH (09:27)
[2019-06-01] MEDS: OMEPRAZOLE 20 MG CAP PO SCH (09:27)
[2019-06-01] MEDS: MELOXICAM (MOBIC) 7.5 MG TAB PO SCH (09:27)
[2019-06-01] MEDS: VENLAFAXINE **XR** 75MG CAPSULE PO SCH (09:27)
[2019-06-01] MEDS: QUINAPRIL 20 MG TAB PO SCH ×2 (09:28→21:11)
[2019-06-01] MEDS: atenoloL 50 MG TAB PO SCH (09:28)
[2019-06-01] MEDS: SANTYL OINT 30GM TOP SCH (09:29)
[2019-06-01] MEDS ORDERED: POTASSIUM PHOSPHATE INJ 30 MMOL in D5W 500 ML IV ONE (10:00)
--- NOTE | 2019-06-01 10:28 | PHACANCOPD ---
PHARMACY VANCOMYCIN DOSING Pt Demographics Demographics Patient Age:63 , Weight:136.400 , Gender: female Adjusted Body Weight Date: 06/01/19, Adjusted Body Weight: [88] Kg Events Past 24 Hours Events Past 24 Hours: NO: Dialysis, Diuretic Therapy, Change in CrCl, Fever, Elevation in WBC, Pending Diagnostics, Pending Procedures, Other Vancomycin Vancomycin indication: CELLULITIS Vancomycin Target Ranges: 15-20 mcg/ml Vancomycin Load Y/N: Yes Load Dose Date Time Vancomycin Load Dose:2G Date:06/01/19 Time: 12:00 Vancomycin Dose Date: 06/01/19. Current Vancomycin Dose: [1G IV Q12H] Intermittent Dosing?: No Labs Labs Item Value Date Time White Blood Count 16.3 10^3/uL H 05/30/19 182 White Blood Count 13.4 10^3/uL H 05/31/19 0605 White Blood Count 8.3 10^3/uL 06/01/19 0552 Creatinine 0.92 MG/DL 05/30/191824 Creatinine 0.91 MG/DL 05/31/19 0605 Creatinine 0.80 MG/DL 06/01/19 0552 Micro Microbiology 05/31/19 Blood Culture - Preliminary, Resulted No growth after 24 hours . All specim... 05/30/19 Urine Culture, Received Pending 05/30/19 Blood Culture - Preliminary, Resulted No growth after 24 hours . All specim... Creatinine Clearance Date:06/01/19. Creatinine Clearance: [99ML/MIN ADJUSTED]. Pending Labs 06/02/19 21:00 VANCOMYCIN TROUGH Assessment and Plan Maintaining Current Dose?: Yes Reason for dose change: No Dose Change Pharmacist Note Pharmacist Note Date: 06/01/19. Pharmacist note: Pt is a 63 year old female being treated for cellulitis goal trough 15-20cg/ml. She has not been treated with vancomycin here at [facility] in the past. Current estimated creatinine clearance is 99ml/min. To achieve goal a 2g loading dose will start 06/01/19 @ 12:00. Maintenance therapy will consist of 1g IV every 12 hours starting 06/01/19 @22:00. A trough is scheduled for 06/02/19 @ 21:00. We will continue to monitor and adjust the dose as needed. [facility] Jun 01, 2019 10:28
[2019-06-01] MEDS: PENCICLOVIR 1% CREAM 5GM TOP SCH ×6 (12:55→21:52)
[2019-06-01] MEDS: VANCOMYCIN HCL 1,000 MG, VIAL MATE ADAPTER 1 EACH in D5W 250 ML IV SCH ×3 (12:55→21:52)
[2019-06-01 14:00] VITALS: BP 118/60
[2019-06-01 22:00] VITALS: BP 112/68
[2019-06-02] MEDS: PENCICLOVIR 1% CREAM 5GM TOP SCH ×14 (02:04→23:37)
[2019-06-02 06:00] VITALS: BP_SYST 105; BP_SYST 145; BP_DIAS 57; BP_DIAS 74
[2019-06-02 06:17] LABS: HEMATOCRIT 34.6 % (36.0-47.0); HEMOGLOBIN 11.6 g/dl (12.0-15.5); MEAN CORPUSCULAR HEMOGLOBIN 29.7 pg (27.0-33.0); MEAN CORPUSCULAR HGB CONC 33.5 g/dl (32.0-36.5); MEAN CORPUSCULAR VOLUME 88.5 fl (80.0-96.0); PLATELET COUNT, AUTOMATED 175 10^3/uL (150-450); RED BLOOD COUNT 3.91 10^6/uL (4.00-5.40); WHITE BLOOD COUNT 6.1 10^3/uL (4.0-10.0)
[2019-06-02 06:42] LABS: BLOOD UREA NITROGEN 8 MG/DL (7-18); CALCIUM LEVEL 8.6 MG/DL (8.8-10.2); CARBON DIOXIDE LEVEL 30 MEQ/L (21-32); CHLORIDE LEVEL 101 MEQ/L (98-107); CREATININE FOR GFR 0.66 MG/DL (0.55-1.30); GLOMERULAR FILTRATION RATE > 60.0 (>45); GLUCOSE, FASTING 91 MG/DL (70-100); PHOSPHORUS LEVEL 3.8 MG/DL (2.5-4.9); POTASSIUM SERUM 3.1 MEQ/L (3.5-5.1); SODIUM LEVEL 137 MEQ/L (136-145)
[2019-06-02] MEDS: DOCUSATE SODIUM 100 MG CAP PO SCH ×2 (09:00→20:57)
[2019-06-02] MEDS: ENOXAPARIN 40 MG/0.4 ML SYRINGE (J1650) SC SCH (09:31)
[2019-06-02] MEDS: OMEPRAZOLE 20 MG CAP PO SCH (09:31)
[2019-06-02] MEDS: VENLAFAXINE **XR** 75MG CAPSULE PO SCH (09:32)
[2019-06-02] MEDS: hydroCHLOROthiazide 25 MG TAB PO SCH (09:32)
[2019-06-02] MEDS: atenoloL 50 MG TAB PO SCH (09:32)
[2019-06-02] MEDS: MELOXICAM (MOBIC) 7.5 MG TAB PO SCH (09:32)
[2019-06-02] MEDS: QUINAPRIL 20 MG TAB PO SCH ×2 (09:32→20:56)
[2019-06-02] MEDS: VANCOMYCIN HCL 1,000 MG, VIAL MATE ADAPTER 1 EACH in D5W 250 ML IV SCH ×2 (09:33→21:30)
[2019-06-02] MEDS ORDERED: POTASSIUM CHLORIDE 10 MEQ SR TABLET PO ONE (10:00)
--- NOTE | 2019-06-02 13:25 | IPNPDOC ---
Subjective Date Seen The patient was seen on 06/02/19. Subjective Chief Complaint/HPI Patient feels better. Swelling and redness is slightly decreased General: Denies: ROS Unobtainable, Chills, Night Sweats, Fatigue, Malaise, Normal Appetite, Other Symptoms Constitutional: Denies: Chills, Fever, Malaise, Night Sweats, Weakness, Fatigue, Weight Loss, Lethargy, Other Skin: Reports: Other Pulmonary: Denies: Dyspnea, Cough, Pleuritic Chest Pain, Other Symptoms Cardiovascular: Denies: Chest Pain, Palpitations, Orthopnea, Paroxysmal Noc. Dyspnea, Edema, Lt Headedness, Other Symptoms Gastrointestinal: Denies: Nausea, Vomiting, Abdominal Pain, Diarrhea, Constipation, Melena, Hematochezia, Other Symptoms Musculoskeletal: Denies: Neck Pain, Back Pain, Shoulder Pain, Arm Pain, Hand Pain, Leg Pain, Foot Pain, Joint Pain, Muscle Pain, Spasms, Other Symptoms Neurological: Denies: Weakness, Numbness, Incoordination, Change in speech, Confusion, Seizures, Other Symptoms Objective Physical Examination General Exam: Positive: Alert, Cooperative Chest Exam: Positive: Clear to auscultation, Normal air movement Heart Exam: Positive: Rate Normal, Normal S1, Normal S2 Abdomen Exam: Positive: Soft Extremity Exam: Positive: Normal pulses Skin Exam: Positive: Nl turgor and temperature Neuro Exam: Positive: Strength at 5/5 X4 ext, Sensation Intact, Cranial Nerves 3-12 NL Assessment /Plan Problems (1) Cellulitis of right lower extremity Status: Acute Problem Text: Patient but change to vancomycin yesterday secondary to history of MRSA Wound is clearing slowly Continue vancomycin for a few more days A.m. labs Continue all home meds (2) HTN (hypertension) Status: Chronic Problem Text: Continue home medications (3) Diabetes mellitus Status: Chronic Problem Text: DM - HgA1c - <5.7 after losing weight, no longer requiring treatment, continue sliding scale coverage with meals & at bedtime. Plan/VTE VTE Prophylaxis Ordered?: Yes VS, I&O, 24H, Fishbone Vital Signs/I&O Vital Signs Date Time Temp Pulse Resp B/P (MAP) Pulse Ox O2 Delivery O2 Flow Rate FiO2 06/02/19 09:32 64 145/74 06/02/19 06:00 97.9 18 96 Room Air 06/01/19 14:00 1.0 I&O- Last 24 Hours up to 6 AM 06/02/19 06:00 Intake Total 1715 ml Output Total 1 ml Balance 1714 ml Laboratory Data 24H LABS Laboratory Tests 2 06/01/19 17:55: Bedside Glucose (Misc Panel) 115 06/02/19 05:58: Nucleated Red Blood Cells % (auto) 0.0, Anion Gap 6L, Glomerular Filtration Rate > 60.0, Calcium Level 8.6L, Phosphorus Level 3.8#, Magnesium Level 2.0 CBC/BMP Laboratory Tests 06/02/19 05:58 Microbiology Microbiology 05/31/19 Blood Culture - Preliminary, Resulted No Growth after 48 hours. All Specime... 05/30/19 Urine Culture - Final, Complete 05/30/19 Blood Culture - Preliminary, Resulted No Growth after 48 hours. All Specime... GONZALO LOFTON MD Jun 02, 2019 13:25
[2019-06-02 14:00] VITALS: BP 106/57
[2019-06-02] MEDS: SANTYL OINT 30GM TOP SCH (17:39)
--- NOTE | 2019-06-02 18:58 | IPNPDOC ---
Date Seen The patient was seen on 06/02/19. Progress Note SUBJECTIVE: 63 y.o female w/ PMH of DM, HTN, HLD, CHAVA & Morbid obesity is admitted for RLE cellulitis. She was admitted overnight, reports no change since admission at this time. She continues to experience RLE pain/swelling. She has no additional complaints at this time. She reports that her medical issues have resolved since she lost >100 lbs, she is no longer requiring treatment for DM, HLD or CHAVA. Although, she has regained ~60 lbs since then. She does not use CPAP at this time. She denies any SOB, CP, N/V/D or abdominal pain. 06/01/19 Patient with minimal change in swelling/erythema/pain of RLE, has history of MRSA foot infection. She has no other complaints at this time, denies SOB, CP, N/V/D or abdominal pain. 10 point ROS is negative except for above. OBJECTIVE PHYSICAL EXAMINATION: VITAL SIGNS: Please see below. GENERAL: Morbidly obese, no distress HEENT: moist mucous membranes CARDIOVASCULAR: S1, S2, no murmurs RESPIRATORY: diminished, clear to auscultation anteriorly ABDOMINAL: soft, non-tender, non-distended, +BS EXTREMITIES: RLE w/ significant erythema, swelling & tenderness to palpation up the the Knee NEUROLOGICAL: no focal deficits PSYCHOLOGICAL: calm LABORATORY DATA, IMAGING STUDIES, MICROBIOLOGY: Please see below. DVT prophylaxis ordered?: Yes ASSESSMENT AND PLAN: 63 y.o female w/ an extensive medical history which she no longer gets treated for since losing >100 lbs is admitted for RLE cellulitis. PROBLEMS: 1. RLE Cellulitis - Switched antibiotics to Vancomycin given history of MRSA, Cultures negative to date. 2. DM - HgA1c - <5.7 after losing weight, no longer requiring treatment, dced sliding scale coverage. 3. HTN - continue Atenolol & HCTZ 4. CHAVA - has not used CPAP since weight loss, has regained ~60 lbs since then likely requires repeat sleep study given her current symptoms. Recommend outpatient follow up w/ Sleep physician. DVT Prophylaxis - Lovenox GI Prophylaxis - home PPI VS, I&O, 24H, Fishbone Vital Signs/I&O Vital Signs Date Time Temp Pulse Resp B/P (MAP) Pulse Ox O2 Delivery O2 Flow Rate FiO2 06/02/19 14:00 97.7 58 16 106/57 (73) 97 Room Air 06/01/19 14:00 1.0 I&O- Last 24 Hours up to 6 AM 06/02/19 06:00 Intake Total 1715 ml Output Total 1 ml Balance 1714 ml Laboratory Data 24H LABS Laboratory Tests 2 06/02/19 05:58: Nucleated Red Blood Cells % (auto) 0.0, Anion Gap 6L, Glomerular Filtration Rate > 60.0, Calcium Level 8.6L, Phosphorus Level 3.8#, Magnesium Level 2.0 CBC/BMP Laboratory Tests 06/02/19 05:58 Microbiology Microbiology 05/31/19 Blood Culture - Preliminary, Resulted No Growth after 48 hours. All Specime... 05/30/19 Urine Culture - Final, Complete 05/30/19 Blood Culture - Preliminary, Resulted No Growth after 72 hours. All specime... HILDA JETT MD Jun 02, 2019 18:58
[2019-06-02 22:00] VITALS: BP 128/62
[2019-06-02] MEDS ORDERED: VANCOMYCIN HCL 1,000 MG, VIAL MATE ADAPTER 1 EACH in D5W 250 ML IV ONE (23:00)
[2019-06-03] MEDS: PENCICLOVIR 1% CREAM 5GM TOP SCH ×11 (01:37→22:37)
[2019-06-03 06:00] VITALS: BP 109/57
--- NOTE | 2019-06-03 06:45 | PHACANCOPD ---
PHARMACY VANCOMYCIN DOSING Pt Demographics Demographics Patient Age:63 , Weight:136.400 , Gender: female Adjusted Body Weight Date: 06/01/19, Adjusted Body Weight: [88] Kg Vancomycin Vancomycin indication: CELLULITIS Vancomycin Target Ranges: 15-20 mcg/ml Vancomycin Load Y/N: Yes Load Dose Date Time Vancomycin Load Dose:2G Date:06/01/19 Time: 12:00 Vancomycin Dose Date: 06/03/19. Current Vancomycin Dose: [1.5 G Q12H] Date: 06/01/19. Current Vancomycin Dose: [1G IV Q12H] Intermittent Dosing?: No Labs Micro Microbiology 05/31/19 Blood Culture - Preliminary, Resulted No Growth after 48 hours. All Specime... 05/30/19 Urine Culture - Final, Complete 05/30/19 Blood Culture - Preliminary, Resulted No Growth after 72 hours. All specime... Creatinine Clearance Date:06/01/19. Creatinine Clearance: [99ML/MIN ADJUSTED]. Pending Labs 06/04/19 09:00 VANCOMYCIN TROUGH Assessment and Plan Maintaining Current Dose?: No Reason for dose change: Trough too low Pharmacist Note Pharmacist Note Date: 06/03/19. Pharmacist note:Vancomycin trough drawn 06/02@20:47 reported as 10.0(trough goal= 15-20).Administered additional Vanco 1 gram@23:00( total of 2 Gram dose) and will adjust scheduled regimen to 1500mg [id number] to begin 06/03.Next trough is scheduled for 06/04@0900 Date: 06/01/19. Pharmacist note: Pt is a 63 year old female being treated for cellulitis goal trough 15-20cg/ml. She has not been treated with vancomycin here at [facility] in the past. Current estimated creatinine clearance is 99ml/min. To achieve goal a 2g loading dose will start 06/01/19 @ 12:00. Maintenance therapy will consist of 1g IV every 12 hours starting 06/01/19 @22:00. A trough is scheduled for 06/02/19 @ 21:00. We will continue to monitor and adjust the dose as needed. STEFFANY CHAVIRA PHARMACY Jun 03, 2019 06:45
[2019-06-03] MEDS ORDERED: POTASSIUM CHLORIDE 10 MEQ SR TABLET PO ONE (08:00)
[2019-06-03] MEDS: DOCUSATE SODIUM 100 MG CAP PO SCH ×2 (09:00→20:55)
[2019-06-03] MEDS: ENOXAPARIN 40 MG/0.4 ML SYRINGE (J1650) SC SCH (09:40)
[2019-06-03] MEDS: MELOXICAM (MOBIC) 7.5 MG TAB PO SCH (09:43)
[2019-06-03] MEDS: hydroCHLOROthiazide 25 MG TAB PO SCH (09:43)
[2019-06-03] MEDS: VENLAFAXINE **XR** 75MG CAPSULE PO SCH (09:43)
[2019-06-03] MEDS: OMEPRAZOLE 20 MG CAP PO SCH (09:43)
[2019-06-03] MEDS: QUINAPRIL 20 MG TAB PO SCH ×2 (09:45→20:55)
[2019-06-03] MEDS: SANTYL OINT 30GM TOP SCH (09:45)
[2019-06-03] MEDS: atenoloL 50 MG TAB PO SCH (09:46)
[2019-06-03] MEDS: VANCOMYCIN HCL 1,000 MG, VIAL MATE ADAPTER 1 EACH in D5W 250 ML IV SCH ×2 (09:50→20:56)
--- NOTE | 2019-06-03 12:38 | IPNPDOC ---
Subjective Date Seen The patient was seen on 06/03/19. Subjective Chief Complaint/HPI Patient feeling better today. Redness is slowly improving General: Denies: ROS Unobtainable, Chills, Night Sweats, Fatigue, Malaise, Normal Appetite, Other Symptoms Constitutional: Denies: Chills, Fever, Malaise, Night Sweats, Weakness, Fatigue, Weight Loss, Lethargy, Other Skin: Reports: Rash; Denies: Lesions, Jaundice, Bruising, Itching, Dry, Breakdown, Nail Changes, Other Pulmonary: Denies: Dyspnea, Cough, Pleuritic Chest Pain, Other Symptoms Cardiovascular: Denies: Chest Pain, Palpitations, Orthopnea, Paroxysmal Noc. Dyspnea, Edema, Lt Headedness, Other Symptoms Gastrointestinal: Denies: Nausea, Vomiting, Abdominal Pain, Diarrhea, Constipation, Melena, Hematochezia, Other Symptoms Musculoskeletal: Denies: Neck Pain, Back Pain, Shoulder Pain, Arm Pain, Hand Pain, Leg Pain, Foot Pain, Joint Pain, Muscle Pain, Spasms, Other Symptoms Neurological: Denies: Weakness, Numbness, Incoordination, Change in speech, Confusion, Seizures, Other Symptoms Objective Physical Examination Chest Exam: Positive: Clear to auscultation, Normal air movement Heart Exam: Positive: Rate Normal, Normal S1, Normal S2 Abdomen Exam: Positive: Soft Extremity Exam: Positive: Normal pulses, Other (. Improving lower extremity patient swelling) Skin Exam: Positive: Nl turgor and temperature Neuro Exam: Positive: Strength at 5/5 X4 ext, Sensation Intact, Cranial Nerves 3-12 NL Assessment /Plan Problems (1) Cellulitis of right lower extremity Status: Acute Problem Text: Patient's antibiotics were changed to vancomycin yesterday secondary to history of MRSA Wound is progressively improving Continue vancomycin for 1 more day Possible discharge home on by mouth antibiotics (2) HTN (hypertension) Status: Chronic Problem Text: Continue home medications (3) Diabetes mellitus Status: Chronic Problem Text: DM - HgA1c - <5.7 after losing weight, no longer requiring treatment, continue sliding scale coverage with meals & at bedtime. Plan/VTE VTE Prophylaxis Ordered?: Yes VS, I&O, 24H, Fishbone Vital Signs/I&O Vital Signs Date Time Temp Pulse Resp B/P (MAP) Pulse Ox O2 Delivery O2 Flow Rate FiO2 06/03/19 09:46 92 124/81 06/03/19 06:00 97.7 18 96 Room Air 06/01/19 14:00 1.0 I&O- Last 24 Hours up to 6 AM 06/03/19 06:00 Intake Total 1320 ml Output Total 1775 ml Balance -455 ml Laboratory Data 24H LABS Laboratory Tests 2 06/02/19 20:47: Vancomycin Level Trough 10.0 Microbiology Microbiology 05/31/19 Blood Culture - Preliminary, Resulted No Growth after 72 hours. All specime... 05/30/19 Urine Culture - Final, Complete 05/30/19 Blood Culture - Preliminary, Resulted No Growth after 72 hours. All specime... GONZALO LOFTON MD Jun 03, 2019 12:38
[2019-06-03] MEDS: VANCOMYCIN HCL 500 MG in D5W MINI-BAG PLUS 100 ML IV SCH (13:26)
[2019-06-03 14:00] VITALS: BP 106/52
[2019-06-03 22:00] VITALS: BP 108/58
[2019-06-04] MEDS: PENCICLOVIR 1% CREAM 5GM TOP SCH ×9 (00:44→16:00)
[2019-06-04] MEDS: VANCOMYCIN HCL 500 MG in D5W MINI-BAG PLUS 100 ML IV SCH ×2 (00:44→10:44)
[2019-06-04 06:00] VITALS: BP 132/69
[2019-06-04] MEDS ORDERED: POTASSIUM CHLORIDE 10 MEQ SR TABLET PO ONE ×2 (07:45→10:30)
[2019-06-04 09:58] LABS: BLOOD UREA NITROGEN 12 MG/DL (7-18); CALCIUM LEVEL 8.9 MG/DL (8.8-10.2); CARBON DIOXIDE LEVEL 27 MEQ/L (21-32); CHLORIDE LEVEL 104 MEQ/L (98-107); CREATININE FOR GFR 0.89 MG/DL (0.55-1.30); GLOMERULAR FILTRATION RATE > 60.0 (>45); GLUCOSE, FASTING 143 MG/DL (70-100); POTASSIUM SERUM 3.3 MEQ/L (3.5-5.1); SODIUM LEVEL 140 MEQ/L (136-145); VANCOMYCIN LEVEL TROUGH 19.7 UG/ML (10.0-20.0)
[2019-06-04] MEDS ORDERED: CLIN150C14 PO (10:12)
[2019-06-04] MEDS ORDERED: SANT250O8 TOP (10:40)
[2019-06-04] MEDS: ENOXAPARIN 40 MG/0.4 ML SYRINGE (J1650) SC SCH (10:41)
[2019-06-04 10:42] VITALS: BP 130/82
[2019-06-04] MEDS: VENLAFAXINE **XR** 75MG CAPSULE PO SCH (10:42)
[2019-06-04] MEDS: MELOXICAM (MOBIC) 7.5 MG TAB PO SCH (10:42)
[2019-06-04] MEDS: DOCUSATE SODIUM 100 MG CAP PO SCH (10:42)
[2019-06-04] MEDS: atenoloL 50 MG TAB PO SCH (10:42)
[2019-06-04] MEDS: hydroCHLOROthiazide 25 MG TAB PO SCH (10:43)
[2019-06-04] MEDS: OMEPRAZOLE 20 MG CAP PO SCH (10:43)
[2019-06-04] MEDS: QUINAPRIL 20 MG TAB PO SCH (10:43)
[2019-06-04] MEDS: SANTYL OINT 30GM TOP SCH (10:44)
[2019-06-04] MEDS ORDERED: VANCOMYCIN HCL 750 MG, VIAL MATE ADAPTER 1 EACH in D5W 250 ML IV SCH (12:00)
--- NOTE | 2019-06-04 12:39 | DS.PDOC ---
Discharge Summary General Date of Admission May 30, 2019 at 20:35 Date of Discharge 06/04/19 Discharge Summary PROCEDURES PERFORMED DURING STAY: None. ADMITTING DIAGNOSES: 1. Cellulitis right lower extremity. DISCHARGE DIAGNOSES: 1. Cellulitis right lower extremity. COMPLICATIONS/CHIEF COMPLAINT: Cellulitis Of Right Leg. HISTORY OF PRESENT ILLNESS: his is a 63-year-old female who [facility] with complaints of a fever as high as 103.7 per EMS. She was at the hospital last night complaining of right toe pain which she has had for about 1 month associated with right lower extremity redness, pain and swelling & nonbloody emesis. Last night while try to walk to the bathroom she felt groggy, fell down and hit her face. At her baseline she walks with a cane or walker.. HOSPITAL COURSE: Cellulitis of right lower extremity Patient initially was started on Ancef and later was switched to vancomycin as patient has a history of MRSA about 6 months ago Patient responded very well to vancomycin. Her swelling, redness has improved Looking at the MRSA cultures. She was sensitive to clindamycin 150 mg by mouth every 6 hours And will continue same antibiotics as an outpatient Patient can follow up with her PCP in one week Pt also advised to continue on home medications Regarding her diabetes mellitus and hypertension. Patient will continue taking her home meds. . DISCHARGE MEDICATIONS: Please see below. ALLERGIES: Please see below. PHYSICAL EXAMINATION ON DISCHARGE: VITAL SIGNS: Please see below. GENERAL: Within normal limits HEENT: Olga extraocular muscle intact NECK: Supple CARDIOVASCULAR EXAMINATION: S1, S2, regular RESPIRATORY EXAMINATION: Clear to A&P ABDOMINAL EXAMINATION: Benign EXTREMITIES: Residual rash and right lower extremity, but no tenderness. No increase in local temperature SKIN: As above NEUROLOGICAL EXAMINATION: . No focal motor sensory deficit PSYCHIATRIC EXAMINATION: Normal LABORATORY DATA: Please see below. IMAGING: Right lower extremity venous Doppler PROGNOSIS: good ACTIVITY: As tolerated. DIET: as tolerated DISCHARGE PLAN: f/u with pcp in one week DISPOSITION: .home DISCHARGE INSTRUCTIONS: 1. As per discharge instructions. ITEMS TO FOLLOWUP ON ON OUTPATIENT: 1. Follow with PCP in one week. DISCHARGE CONDITION: Stable. TIME SPENT ON DISCHARGE: 42 minutes. Vital Signs/I&Os Vital Signs Date Time Temp Pulse Resp B/P (MAP) Pulse Ox O2 Delivery O2 Flow Rate FiO2 06/04/19 10:42 79 130/82 06/04/19 06:00 98.4 16 93 Room Air 06/01/19 14:00 1.0 I&O- Last 24 Hours up to 6 AM 06/04/19 06:00 Intake Total 780 ml Output Total 2200 ml Balance -1420 ml Laboratory Data Labs 24H Laboratory Tests 2 06/04/19 09:10: Anion Gap 9, Glomerular Filtration Rate > 60.0, Calcium Level 8.9, Vancomycin Level Trough 19.7 CBC/BMP Laboratory Tests 06/04/19 09:10 Microbiology Microbiology 05/31/19 Blood Culture - Preliminary, Resulted No Growth after 72 hours. All specime... 05/30/19 Urine Culture - Final, Complete 05/30/19 Blood Culture - Preliminary, Resulted No Growth after 72 hours. All specime... Discharge Medications Scheduled Atenolol (Atenolol) 100 Mg Tab, 100 MG PO DAILY, (Reported) Clindamycin Hcl (Clindamycin HCl) 150 Mg Capsule, 150 MG PO QID Collagenase Clostridium Hist. (Santyl) 30 Gm Oint...g., 1 APLCT TOP DAILY Hydrochlorothiazide (Hydrochlorothiazide) 25 Mg Tab, 25 MG PO DAILY, (Reported) Meloxicam (Meloxicam) 15 Mg Tab, 15 MG PO DAILY, (Reported) Omeprazole (Omeprazole) 40 Mg Cap, 40 MG PO DAILY, (Reported) Quinapril Hcl (Quinapril HCl) 20 Mg Tab, 20 MG PO BID, (Reported) Venlafaxine HCl (Venlafaxine HCl ER) 75 Mg Cap.er.24h, 75 MG PO DAILY, (Reported) Vitamin B Complex (Vitamin B Complex) 1 Each Tablet, 1 TAB PO DAILY, (Reported) Scheduled PRN Cyclobenzaprine HCl (Cyclobenzaprine HCl) 10 Mg Tab, 10 MG PO TID PRN for MUSCLE SPASMS, (Reported) Metoclopramide HCl (Metoclopramide HCl) 10 Mg Tablet, 10 MG PO Q6H PRN for NAUSEA, (Reported) Oxycodone HCl/Acetaminophen (Percocet 5-325 mg Tablet) 1 Tab Tab, 1 TAB PO Q6H PRN for PAIN, (Reported) Tramadol HCl (Tramadol HCl) 50 Mg Tab, 50 MG PO PRN PRN for PAIN, (Reported) Allergies Coded Allergies: hydrocodone (Verified Allergy, Severe, Dyspnea, 12/23/19) codeine (Verified Allergy, Intermediate, Hives, 05/17/19) amitriptyline (Verified Adverse Reaction, Intermediate, Rapid heart rate, 05/17/19) erythromycin base (Verified Adverse Reaction, Mild, Vomiting , 05/17/19) GONZALO LOFTON MD Jun 04, 2019 12:39
[2019-06-04 14:00] VITALS: BP 110/59
== END 2019-06-04 16:49 | disposition home health service (06) | DRG 603 ==
LOC: M ED 17:53 → EDBD 17:53 → M ED INP 20:35 → ENRESERVDT 21:02 → ENRESERVTM 21:02 → M MSPAV 22:29
PROVIDERS: ADMIT Internal Medicine; ATTEND Internal Medicine
DX: L03.115 Cellulitis of right lower limb (principal); Z68.43 Body mass index [BMI] 50.0-59.9, adult; E11.9 Type 2 diabetes mellitus without complications; R26.81 Unsteadiness on feet; E78.5 Hyperlipidemia, unspecified; I10 Essential (primary) hypertension; G47.33 Obstructive sleep apnea (adult) (pediatric); F32.9 Major depressive disorder, single episode, unspecified; F41.9 Anxiety disorder, unspecified; K21.9 Gastro-esophageal reflux disease without esophagitis; E66.01 Morbid (severe) obesity due to excess calories; M54.9 Dorsalgia, unspecified; Z90.49 Acquired absence of other specified parts of digestive tract; Z87.891 Personal history of nicotine dependence; Z79.1 Long term (current) use of non-steroidal anti-inflammatories (NSAID); Z79.899 Other long term (current) drug therapy; Z88.1 Allergy status to other antibiotic agents; Z88.5 Allergy status to narcotic agent; Z88.8 Allergy status to other drugs, medicaments and biological substances; Z86.14 Personal history of Methicillin resistant Staphylococcus aureus infection

== ENCOUNTER 2019-06-10 16:49 | Emergency (ER) | payer MEDICARE, MEDICAID ==
[~2019-06-10] VITALS: Ht 165.1 cm; Wt 136.0 kg
[~2019-06-10 16:49] MED LIST changes: +CLIN150C14 PO; +EQL50TAB2 PO; +METO10TA2 PO; +SANT250O8 TOP
[2019-06-10 18:03] LABS: BASO % 0.5 % (0.0-1.0); EOS # 0.1 10^3/uL (0.0-0.5); HEMATOCRIT 37.6 % (36.0-47.0); HEMOGLOBIN 12.6 g/dl (12.0-15.5); LYMPH # 2.5 10^3/uL (1.5-5.0); LYMPH % 38.2 % (24.0-44.0); MEAN CORPUSCULAR HEMOGLOBIN 29.6 pg (27.0-33.0); MEAN CORPUSCULAR HGB CONC 33.5 g/dl (32.0-36.5); MEAN CORPUSCULAR VOLUME 88.3 fl (80.0-96.0); MONO # 0.5 10^3/uL (0.0-0.8); MONO % 7.8 % (0.0-5.0); NEUTROPHILS # 3.3 10^3/uL (1.5-8.5); NEUTROPHILS % 51.2 % (36.0-66.0); PLATELET COUNT, AUTOMATED 350 10^3/uL (150-450); RED BLOOD COUNT 4.26 10^6/uL (4.00-5.40); WHITE BLOOD COUNT 6.5 10^3/uL (4.0-10.0)
--- NOTE | 2019-06-10 18:21 | REPVR ---
PROCEDURE INFORMATION: Exam: US Duplex Right Lower Extremity Veins, Limited Exam date and time: 06/10/2019 6:12 PM Age: 63 years old Clinical indication: Pain; Leg, upper and leg, lower; Right; Additional info: Calf pain/swelling TECHNIQUE: Imaging protocol: Real-time Duplex ultrasound of the Right Lower Extremity with 2-D prado scale, color Doppler flow and spectral waveform analysis with image documentation. Limited exam was focused on the right lower extremity veins. COMPARISON: US Duplex, Ext,LOWER veins,unilat RIGHT 05/30/2019 7:21 PM FINDINGS: Right deep veins: Unremarkable. The common femoral, femoral, proximal profunda femoral and popliteal veins are patent without thrombus. Normal Doppler waveforms. Normal compressibility and/or augmentation response. Right superficial veins: Unremarkable. Saphenofemoral junction is patent without thrombus. Soft tissues: Unremarkable. IMPRESSION: No acute findings. No evidence of deep vein thrombosis. Electronically signed by: Bartolo Blackwell On 06/10/2019 18:21:37 PM
[2019-06-10 18:26] LABS: ALBUMIN 3.2 GM/DL (3.2-5.2); ALT/SGPT 33 U/L (12-78); BILIRUBIN,DIRECT 0.1 MG/DL (0.0-0.2); BILIRUBIN,TOTAL 0.3 MG/DL (0.2-1.0); C REACTIVE PROTEIN QUANTITATIV < 0.30 MG/DL (0.00-0.30); TOTAL PROTEIN 7.3 GM/DL (6.4-8.2)
[2019-06-10 18:34] LABS: ERYTHROCYTE SEDIMENTATION RATE 106 mm/hr (0-30)
[2019-06-10] MEDS ORDERED: CLEO300C2 PO (19:45)
[2019-06-10 19:59] VITALS: BP 134/77
[2019-06-10] MEDS ORDERED: CLINDAMYCIN 150 MG CAP PO ONE (20:00)
== END 2019-06-10 20:40 | disposition home or self-care (01) ==
LOC: M ED 16:49
DX: L03.115 Cellulitis of right lower limb (principal); M79.661 Pain in right lower leg; E11.9 Type 2 diabetes mellitus without complications; I10 Essential (primary) hypertension; E78.5 Hyperlipidemia, unspecified; R51 Headache; G47.33 Obstructive sleep apnea (adult) (pediatric); K21.9 Gastro-esophageal reflux disease without esophagitis; Z87.442 Personal history of urinary calculi; M54.9 Dorsalgia, unspecified; F32.9 Major depressive disorder, single episode, unspecified; Z88.5 Allergy status to narcotic agent; Z88.8 Allergy status to other drugs, medicaments and biological substances; Z88.1 Allergy status to other antibiotic agents; Z79.899 Other long term (current) drug therapy

== ENCOUNTER → 2019-07-30 | Outpatient (REF) | payer MEDICARE, MEDICAID ==
[~2019-07-30] MED LIST changes: +CLEO300C2 PO
[2019-07-30 18:57] LABS: INFLUENZA A AMPLIFICATION POSITIVE (NEGATIVE); INFLUENZA B AMPLIFICATION NEGATIVE (NEGATIVE)
== END ==
LOC: M LAB REF 17:51
PROVIDERS: ATTEND Physician Assistant
DX: R50.9 Fever, unspecified (principal)

== ENCOUNTER → 2019-08-07 | Outpatient (CLI) | payer MEDICARE, MEDICAID ==
[2019-08-07 12:13] LABS: HEMATOCRIT 40.9 % (36.0-47.0); HEMOGLOBIN 13.9 g/dl (12.0-15.5); MEAN CORPUSCULAR HEMOGLOBIN 29.6 pg (27.0-33.0); MEAN CORPUSCULAR VOLUME 87.2 fl (80.0-96.0); PLATELET COUNT, AUTOMATED 230 10^3/uL (150-450); RED BLOOD COUNT 4.69 10^6/uL (4.00-5.40); WHITE BLOOD COUNT 5.1 10^3/uL (4.0-10.0)
[2019-08-07 12:52] LABS: ALBUMIN 3.5 GM/DL (3.2-5.2); ALT/SGPT 69 U/L (12-78); BILIRUBIN,TOTAL 0.5 MG/DL (0.2-1.0); BLOOD UREA NITROGEN 13 MG/DL (7-18); CALCIUM LEVEL 9.1 MG/DL (8.8-10.2); CARBON DIOXIDE LEVEL 31 MEQ/L (21-32); CHLORIDE LEVEL 104 MEQ/L (98-107); CREATININE FOR GFR 0.85 MG/DL (0.55-1.30); GLOMERULAR FILTRATION RATE > 60.0 (>45); GLUCOSE, FASTING 112 MG/DL (70-100); POTASSIUM SERUM 3.4 MEQ/L (3.5-5.1); SODIUM LEVEL 140 MEQ/L (136-145); TOTAL PROTEIN 7.5 GM/DL (6.4-8.2)
[2019-08-07 23:13] LABS: HEMOGLOBIN A1c 5.4 %
[2019-08-09 09:29] LABS: TOTAL 25(OH) VITAMIN D 12.2 NG/ML (30.0-100.0)
== END ==
LOC: M LAB 11:21
PROVIDERS: ATTEND Family Medicine
DX: E11.9 Type 2 diabetes mellitus without complications (principal); E55.9 Vitamin D deficiency, unspecified

== ENCOUNTER 2019-12-14 15:38 | Emergency (ER) | payer MEDICARE, MEDICAID ==
[~2019-12-14] VITALS: Ht 165.1 cm; Wt 139.6 kg
[~2019-12-14 15:38] MED LIST changes: +CYCL-707 PO; -CYCL10TA PO
[2019-12-14] MEDS ORDERED: VENL150C43 (15:48)
[2019-12-14] MEDS ORDERED: ONDANSETRON 4MG/2ML VIAL IV ONE (17:00)
[2019-12-14] MEDS ORDERED: KETOROLAC 30 MG/ML 1ML VIAL IV ONE (17:00)
[2019-12-14] MEDS ORDERED: ISOVUE-370 76% 100ML VIAL As Ordered ONE (17:03)
[2019-12-14 17:07] LABS: BASO % 0.2 % (0.0-1.0); EOS # 0.1 10^3/uL (0.0-0.5); HEMATOCRIT 41.5 % (36.0-47.0); LYMPH % 16.3 % (24.0-44.0); MEAN CORPUSCULAR HEMOGLOBIN 29.2 pg (27.0-33.0); MEAN CORPUSCULAR HGB CONC 33.7 g/dl (32.0-36.5); MEAN CORPUSCULAR VOLUME 86.5 fl (80.0-96.0); MONO # 0.7 10^3/uL (0.0-0.8); MONO % 5.7 % (0.0-5.0); NEUTROPHILS # 9.5 10^3/uL (1.5-8.5); NEUTROPHILS % 76.6 % (36.0-66.0); PLATELET COUNT, AUTOMATED 270 10^3/uL (150-450); WHITE BLOOD COUNT 12.4 10^3/uL (4.0-10.0)
[2019-12-14 17:31] LABS: ALBUMIN 3.5 GM/DL (3.2-5.2); BILIRUBIN,DIRECT 0.1 MG/DL (0.0-0.2); BILIRUBIN,TOTAL 0.6 MG/DL (0.2-1.0); TOTAL PROTEIN 7.8 GM/DL (6.4-8.2)
--- NOTE | 2019-12-14 17:56 | REPVR ---
PROCEDURE INFORMATION: Exam: CT Abdomen And Pelvis With Contrast Exam date and time: 12/14/2019 5:11 PM Age: 64 years old Clinical indication: Abdominal pain; Additional info: Abd pain/distention TECHNIQUE: Imaging protocol: Computed tomography of the abdomen and pelvis with intravenous contrast. Radiation optimization: All CT scans at this facility use at least one of these dose optimization techniques: automated exposure control; mA and/or kV adjustment per patient size (includes targeted exams where dose is matched to clinical indication); or iterative reconstruction. Contrast material: ISOVUE 370; Contrast volume: 100 ml; Contrast route: INTRAVENOUS (IV); COMPARISON: CT ABD/PEL W/IV ORAL CONTRAS 05/30/2019 3:29 AM FINDINGS: Liver: Examination of the liver demonstrates a lobular surface contour, and enlargement of the left and caudate lobes, findings may be consistent with cirrhosis in the appropriate clinical setting. Gallbladder and bile ducts: There has been a cholecystectomy. Pancreas: Normal. No ductal dilation. Spleen: Normal. No splenomegaly. Adrenals: Small lipoma left adrenal gland. Kidneys and ureters: Normal. No hydronephrosis. Stomach and bowel: There is a segment of acute inflammation in the proximal sigmoid colon associated with boggy wall thickening and adjacent pericolonic fat without evidence of a drainable abscess or free air, consistent with acute diverticulitis. Appendix: The appendix is enlarged using standard size criteria with mild wall thickening. There is no significant fluid collection, abscess or periappendiceal inflammation. Clinical correlation to exclude minimal appendicitis suggested. Intraperitoneal space: Unremarkable. No free air. No significant fluid collection. Vasculature: The aorta demonstrates mild atherosclerotic calcification. Lymph nodes: Unremarkable. No enlarged lymph nodes. Bladder: Unremarkable as visualized. Reproductive: Unremarkable as visualized. Bones/joints: The spine demonstrates moderate degenerative changes. Central disc protrusion at L1-L2 may result in mild cord impingement. There is a moderate central spinal stenosis at L2-L3, moderate to severe degenerative central spinal stenosis at L3-L4 and L4-L5 . Mild degenerative central spinal stenosis L5-S1 with a posterior calcified disc protrusion. Soft tissues: There is a small umbilical hernia. There is no evidence of incarceration. Skin thickening in the periumbilical region. Clinical correlation to exclude infection suggested. IMPRESSION: 1. Examination of the liver demonstrates a lobular surface contour, and enlargement of the left and caudate lobes, findings may be consistent with cirrhosis in the appropriate clinical setting. 2. There has been a cholecystectomy. 3. There is a segment of acute inflammation in the proximal sigmoid colon associated with boggy wall thickening and adjacent pericolonic fat without evidence of a drainable abscess or free air, consistent with acute diverticulitis. 4. Skin thickening in the periumbilical region. Clinical correlation to exclude infection suggested. 5. The appendix is enlarged using standard size criteria with mild wall thickening. There is no significant fluid collection, abscess or periappendiceal inflammation. Clinical correlation to exclude minimal appendicitis suggested. Electronically signed by: Bartolo Blackwell On 12/14/2019 17:56:00 PM
[2019-12-14] MEDS ORDERED: ONDA4TAB6 PO (18:27)
[2019-12-14] MEDS ORDERED: CIPR-249 PO (18:27)
[2019-12-14] MEDS ORDERED: FLAG500T PO (18:27)
[2019-12-14] MEDS ORDERED: CIPROFLOXACIN 500MG TABLET PO ONE (18:30)
[2019-12-14] MEDS ORDERED: metroNIDAZOLE (FLAGYL) 500MG TABLET PO ONE (18:30)
[2019-12-14 18:38] VITALS: BP 110/70
--- NOTE | 2019-12-15 06:47 | ED PDOC ---
Post-Departure Follow-Up dr herrera faxed formal report of ct abd/p for fu Neha Avelar MD Dec 15, 2019 06:47
== END 2019-12-14 18:50 | disposition home or self-care (01) ==
LOC: M ED 15:38
DX: K57.32 Diverticulitis of large intestine without perforation or abscess without bleeding (principal); R12 Heartburn; E11.9 Type 2 diabetes mellitus without complications; I10 Essential (primary) hypertension; E78.5 Hyperlipidemia, unspecified; G47.33 Obstructive sleep apnea (adult) (pediatric); R51 Headache; M54.2 Cervicalgia; M54.9 Dorsalgia, unspecified; F32.9 Major depressive disorder, single episode, unspecified; K21.9 Gastro-esophageal reflux disease without esophagitis; Z88.8 Allergy status to other drugs, medicaments and biological substances; Z88.5 Allergy status to narcotic agent; Z88.1 Allergy status to other antibiotic agents; Z79.899 Other long term (current) drug therapy
CPT/HCPCS: 74177; 80047; 80076; 81001; 83690; 85025; 87086; 96374; 96375; 99284; J1885; J2405; Q9967

== ENCOUNTER → 2021-10-10 | Outpatient (CLI) | payer MEDICARE, MEDICAID ==
[~2021-10-10] MED LIST changes: -CLIN150C14 PO; +CLIN150C17 PO; +ERGO500029 PO; +FLAG500T PO; +HYDR-3490 PO; -HYDR25TAB PO; +OMEP40CA4 PO; -OMEP40CA97 PO; +ONDA4TAB6 PO; +VENL150C43 PO
== END ==
LOC: M LABSMTC 10:36
PROVIDERS: ATTEND Anesthesiology
DX: Z01.818 Encounter for other preprocedural examination (principal)

== ENCOUNTER 2021-10-15 10:57 | Day surgery (SDC) | payer MEDICARE, MEDICAID ==
[~2021-10-15] VITALS: Ht 165.1 cm; Wt 141.2 kg
[~2021-10-15 10:57] MED LIST changes: +NS 1,000 ML IV ONE
[2021-10-15] MEDS ORDERED: LIDOCAINE 2% 100MG/5ML SDV (FOR ANES.) As Ordered ONE (12:11)
[2021-10-15] MEDS ORDERED: fentaNYL 100 MCG/2 ML INJECTION As Ordered ONE (12:12)
[2021-10-15] MEDS ORDERED: propofoL 500 MG/50 ML VIAL As Ordered ONE (12:12)
[2021-10-15] MEDS ORDERED: ePHEDrine SULFATE 25 MG/5 ML(5MG/ML) SYRINGE As Ordered ONE (12:37)
[2021-10-15 13:19] VITALS: BP 106/56
== END 2021-10-15 13:41 | disposition home or self-care (01) ==
LOC: M OPP 10:57
PROVIDERS: ATTEND Internal Medicine Gastroenterology
DX: Z12.11 Encounter for screening for malignant neoplasm of colon (principal); Z86.010 Personal history of colon polyps; Z80.0 Family history of malignant neoplasm of digestive organs; K63.5 Polyp of colon; K57.30 Diverticulosis of large intestine without perforation or abscess without bleeding; K64.8 Other hemorrhoids; K31.7 Polyp of stomach and duodenum; R10.13 Epigastric pain; Z79.891 Long term (current) use of opiate analgesic; Z79.899 Other long term (current) drug therapy; Z88.0 Allergy status to penicillin; Z88.5 Allergy status to narcotic agent; Z88.8 Allergy status to other drugs, medicaments and biological substances; Z87.442 Personal history of urinary calculi
CPT/HCPCS: 43251; 45385; 88305; J3010

== ENCOUNTER → 2022-09-05 | Outpatient (CLI) | payer MEDICARE, MEDICAID ==
[~2022-09-05] MED LIST changes: -NS 1,000 ML IV ONE
[2022-09-05 11:44] LABS: BASO % 0.6 % (0.0-1.0); EOS # 0.2 10^3/uL (0.0-0.5); EOS % 3.1 % (0.0-3.0); HEMATOCRIT 43.2 % (36.0-47.0); HEMOGLOBIN 13.9 g/dl (12.0-15.5); LYMPH # 2.1 10^3/uL (1.5-5.0); LYMPH % 31.1 % (24.0-44.0); MEAN CORPUSCULAR HEMOGLOBIN 28.5 pg (27.0-33.0); MEAN CORPUSCULAR HGB CONC 32.2 g/dl (32.0-36.5); MEAN CORPUSCULAR VOLUME 88.5 fl (80.0-96.0); MONO # 0.4 10^3/uL (0.0-0.8); MONO % 6.4 % (2.0-8.0); NEUTROPHILS % 58.7 % (36.0-66.0); PLATELET COUNT, AUTOMATED 336 10^3/uL (150-450); RED BLOOD COUNT 4.88 10^6/uL (4.00-5.40); WHITE BLOOD COUNT 6.7 10^3/uL (4.0-10.0)
[2022-09-05 11:57] LABS: HEMOGLOBIN A1c 5.4 % (4.0-6.0)
[2022-09-05 12:13] LABS: ALBUMIN 3.3 G/DL (3.2-5.2); ALKALINE PHOSPHATASE 54 U/L (46-116); ALT/SGPT 17 U/L (7.0-40); AST/SGOT 16 U/L (<34); BILIRUBIN,TOTAL 0.3 MG/DL (0.3-1.2); BLOOD UREA NITROGEN 9 MG/DL (9-23); CALCIUM LEVEL 9.5 MG/DL (8.3-10.6); CARBON DIOXIDE LEVEL 30 MMOL/L (20-31); CHLORIDE LEVEL 103 MMOL/L (98-107); CHOLESTEROL LEVEL 191 MG/DL (<200); CHOLESTEROL RISK RATIO 5.05 (<5); CREATININE FOR GFR 0.84 MG/DL (0.55-1.30); GLOMERULAR FILTRATION RATE > 60.0 (>45); GLUCOSE, FASTING 95 MG/DL (74-106); HDL CHOLESTEROL 37.8 MG/DL (>40); LDL CHOLESTEROL 101.8 MG/DL (<100); NON-HDL-C 153.2 MG/DL; POTASSIUM SERUM 4.1 MMOL/L (3.5-5.1); SODIUM LEVEL 139 MMOL/L (136-145); TRIGLYCERIDES LEVEL 257 MG/DL (<150)
[2022-09-05 12:14] LABS: TOTAL 25(OH) VITAMIN D 52.6 NG/ML (20.0-100.0)
[2022-09-05 12:45] LABS: THYROID STIMULATING HORMONE 1.895 uIU/ML (0.55-4.78)
== END ==
LOC: M LAB 10:58
PROVIDERS: ATTEND Family Medicine
DX: E55.9 Vitamin D deficiency, unspecified (principal); E78.00 Pure hypercholesterolemia, unspecified

== ENCOUNTER 2022-10-28 17:20 | Emergency (ER) | payer MEDICARE, MEDICAID ==
[~2022-10-28] VITALS: Ht 165.1 cm; Wt 136.4 kg
[2022-10-28] MEDS ORDERED: traMADol 50 MG TAB PO ONE (21:40)
[2022-10-28] MEDS ORDERED: CYCLOBENZAPRINE 10MG TABLET PO ONE (21:40)
[2022-10-28] MEDS ORDERED: LIDO5DIS41 TD (22:55)
[2022-10-28] MEDS ORDERED: LIDOCAINE 5% (LIDODERM) PATCH TD ONE (22:55)
[2022-10-28 23:10] VITALS: BP 135/75; TEMP 97.8; O2SAT 95
== END 2022-10-28 23:28 | disposition home or self-care (01) ==
LOC: M ED 17:20
DX: M62.830 Muscle spasm of back (principal); M54.2 Cervicalgia; I10 Essential (primary) hypertension; Z86.711 Personal history of pulmonary embolism; Z88.5 Allergy status to narcotic agent; Z88.8 Allergy status to other drugs, medicaments and biological substances; Z88.1 Allergy status to other antibiotic agents; Z79.01 Long term (current) use of anticoagulants; Z79.899 Other long term (current) drug therapy

== ENCOUNTER 2022-10-31 20:55 | Emergency (ER) | payer MEDICARE, MEDICAID ==
[~2022-10-31] VITALS: Ht 165.1 cm; Wt 136.4 kg
[~2022-10-31 20:55] MED LIST changes: +LIDO5DIS41 TD
[2022-11-01] MEDS ORDERED: diazePAM 10MG/2ML SYRINGE IV ONE (01:25)
[2022-11-01] MEDS ORDERED: methylPREDNISolone 125MG 2ML VIAL IV ONE (01:25)
[2022-11-01] MEDS ORDERED: MEDR4PAK PO (03:57)
[2022-11-01] MEDS ORDERED: VALI5TAB PO (03:57)
[2022-11-01 04:00] VITALS: BP 122/63; TEMP 97.9; O2SAT 96
== END 2022-11-01 04:50 | disposition home or self-care (01) ==
LOC: M ED 20:55 → EDBD 20:55 → M ED 11-01 04:50
DX: M62.830 Muscle spasm of back (principal); I10 Essential (primary) hypertension; M54.2 Cervicalgia; F32.A Depression, unspecified; K21.9 Gastro-esophageal reflux disease without esophagitis; M47.9 Spondylosis, unspecified; Z79.01 Long term (current) use of anticoagulants; Z79.899 Other long term (current) drug therapy; Z88.5 Allergy status to narcotic agent; Z88.1 Allergy status to other antibiotic agents; Z88.8 Allergy status to other drugs, medicaments and biological substances
CPT/HCPCS: 96374; 96375; 99285; J2930; J3360

== ENCOUNTER 2023-04-17 10:13 | Emergency (ER) | payer MEDICARE, MEDICAID ==
[~2023-04-17] VITALS: Ht 160 cm; Wt 152.5 kg
[~2023-04-17 10:13] MED LIST changes: +B-COTAB10 PO; +FURO40TA2 PO; +LISI20TA33 PO; +MEDR4PAK PO; +VALI5TAB PO; +XARE20TA PO
[2023-04-17] MEDS ORDERED: ACE65ERTAB PO (10:26)
[2023-04-17] MEDS ORDERED: XARE10TA (10:26)
[2023-04-17] MEDS ORDERED: DIAZ5TAB (10:26)
[2023-04-17] MEDS ORDERED: ACETAMINOPHEN 500 MG TAB PO ONE (10:55)
[2023-04-17] MEDS ORDERED: LIDOCAINE 5% (LIDODERM) PATCH TD ONE (10:55)
[2023-04-17 11:15] LABS: BASO % 0.4 % (0.0-1.0); EOS # 0.1 10^3/uL (0.0-0.5); EOS % 2.1 % (0.0-3.0); HEMATOCRIT 38.2 % (36.0-47.0); HEMOGLOBIN 12.8 g/dl (12.0-15.5); LYMPH # 1.1 10^3/uL (1.5-5.0); LYMPH % 22.8 % (24.0-44.0); MEAN CORPUSCULAR HEMOGLOBIN 28.7 pg (27.0-33.0); MEAN CORPUSCULAR HGB CONC 33.5 g/dl (32.0-36.5); MEAN CORPUSCULAR VOLUME 85.7 fl (80.0-96.0); MONO # 0.3 10^3/uL (0.0-0.8); MONO % 6.5 % (2.0-8.0); NEUTROPHILS # 3.3 10^3/uL (1.5-8.5); PLATELET COUNT, AUTOMATED 224 10^3/uL (150-450); RED BLOOD COUNT 4.46 10^6/uL (4.00-5.40); WHITE BLOOD COUNT 4.8 10^3/uL (4.0-10.0)
[2023-04-17] MEDS: MORPHINE 4 MG/ML 1ML VIAL IV PRN ×2 (11:23→12:02)
[2023-04-17 11:39] LABS: BLOOD UREA NITROGEN 8 MG/DL (9-23); CALCIUM LEVEL 8.8 MG/DL (8.3-10.6); CARBON DIOXIDE LEVEL 29 MMOL/L (20-31); CHLORIDE LEVEL 105 MMOL/L (98-107); CREATININE FOR GFR 0.75 MG/DL (0.55-1.30); GLOMERULAR FILTRATION RATE > 60.0 (>45); GLUCOSE, FASTING 126 MG/DL (74-106); POTASSIUM SERUM 3.8 MMOL/L (3.5-5.1); SODIUM LEVEL 141 MMOL/L (136-145)
[2023-04-17] MEDS ORDERED: LORazepam 2 MG/ML 1ML VIAL IV STA (14:23)
[2023-04-17 15:00] VITALS: BP 130/62; TEMP 98.3; O2SAT 95
== END 2023-04-17 15:13 | disposition home or self-care (01) ==
LOC: EDBD 10:13 → M ED 10:13
DX: M54.50 Low back pain, unspecified (principal); G89.29 Other chronic pain; E11.9 Type 2 diabetes mellitus without complications; I10 Essential (primary) hypertension; F32.A Depression, unspecified; F41.9 Anxiety disorder, unspecified; Z86.711 Personal history of pulmonary embolism; Z87.891 Personal history of nicotine dependence; Z83.3 Family history of diabetes mellitus; Z82.3 Family history of stroke; Z79.02 Long term (current) use of antithrombotics/antiplatelets; Z79.899 Other long term (current) drug therapy; Z88.5 Allergy status to narcotic agent; Z88.1 Allergy status to other antibiotic agents; Z88.8 Allergy status to other drugs, medicaments and biological substances

== ENCOUNTER 2023-10-30 19:21 | Emergency (ER) | payer MEDICARE, MEDICAID ==
[~2023-10-30] VITALS: Ht 160 cm; Wt 134.5 kg
[~2023-10-30 19:21] MED LIST changes: +ACE65ERTAB PO; +DIAZ5TAB; +ONDA-282 PO; -ONDA4TAB6 PO; +XARE10TA
[2023-10-30 19:22] VITALS: BP 140/73; TEMP 97.2; O2SAT 96
== END 2023-10-30 21:23 | disposition left against medical advice (07) ==
LOC: M ED 19:21
DX: Z53.21 Procedure and treatment not carried out due to patient leaving prior to being seen by health care provider (principal)

== ENCOUNTER → 2023-11-30 | Outpatient (CLI) | payer MEDICARE, MEDICAID ==
[2023-11-30 09:03] LABS: BASO % 0.4 % (0.0-1.0); EOS # 0.2 10^3/uL (0.0-0.5); EOS % 3.6 % (0.0-3.0); HEMATOCRIT 41.7 % (36.0-47.0); HEMOGLOBIN 13.7 g/dl (12.0-15.5); LYMPH # 1.5 10^3/uL (1.5-5.0); LYMPH % 28.8 % (24.0-44.0); MEAN CORPUSCULAR HEMOGLOBIN 28.9 pg (27.0-33.0); MEAN CORPUSCULAR HGB CONC 32.9 g/dl (32.0-36.5); MONO # 0.3 10^3/uL (0.0-0.8); MONO % 6.5 % (2.0-8.0); NEUTROPHILS # 3.2 10^3/uL (1.5-8.5); NEUTROPHILS % 60.5 % (36.0-66.0); PLATELET COUNT, AUTOMATED 228 10^3/uL (150-450); RED BLOOD COUNT 4.74 10^6/uL (4.00-5.40); WHITE BLOOD COUNT 5.2 10^3/uL (4.0-10.0)
[2023-11-30 09:14] LABS: HEMOGLOBIN A1c 5.3 % (4.0-6.0)
[2023-11-30 09:32] LABS: ALBUMIN 3.4 G/DL (3.2-5.2); ALKALINE PHOSPHATASE 56 U/L (46-116); ALT/SGPT 36 U/L (7.0-40); AST/SGOT 20 U/L (<34); BILIRUBIN,TOTAL 0.6 MG/DL (0.3-1.2); BLOOD UREA NITROGEN 17 MG/DL (9-23); CALCIUM LEVEL 9.3 MG/DL (8.3-10.6); CARBON DIOXIDE LEVEL 29 MMOL/L (20-31); CHLORIDE LEVEL 104 MMOL/L (98-107); CHOLESTEROL LEVEL 201 MG/DL (<200); CHOLESTEROL RISK RATIO 6.18 (<5); CREATININE FOR GFR 0.87 MG/DL (0.55-1.30); GLOMERULAR FILTRATION RATE > 60.0 (>45); GLUCOSE, FASTING 104 MG/DL (74-106); HDL CHOLESTEROL 32.5 MG/DL (>40); LDL CHOLESTEROL 127.5 MG/DL (<100); NON-HDL-C 168.5 MG/DL; POTASSIUM SERUM 3.9 MMOL/L (3.5-5.1); SODIUM LEVEL 138 MMOL/L (136-145); TRIGLYCERIDES LEVEL 205 MG/DL (<150)
[2023-11-30 09:32] LABS: CREATININE, URINE 174.9 MG/DL; MAU/CREAT RATIO 6.2 MCG/MG (0.0-30.0)
[2023-11-30 09:34] LABS: TOTAL 25(OH) VITAMIN D 69.4 NG/ML (20.0-100.0)
== END ==
LOC: M LAB 08:32
PROVIDERS: ATTEND Family Medicine
DX: E55.9 Vitamin D deficiency, unspecified (principal); E11.9 Type 2 diabetes mellitus without complications

== ENCOUNTER 2024-01-20 13:34 | Observation (INO) | payer MEDICARE, MEDICAID ==
[~2024-01-20] VITALS: Ht 160 cm; Wt 125.0 kg
[~2024-01-20 13:34] MED LIST changes: -XARE10TA; +XARE10TA PO
[2024-01-20 14:44] LABS: BASO % 0.4 % (0.0-1.0); EOS # 0.1 10^3/uL (0.0-0.5); EOS % 1.5 % (0.0-3.0); HEMATOCRIT 42.6 % (36.0-47.0); HEMOGLOBIN 13.9 g/dl (12.0-15.5); LYMPH # 1.7 10^3/uL (1.5-5.0); LYMPH % 30.5 % (24.0-44.0); MEAN CORPUSCULAR HEMOGLOBIN 28.1 pg (27.0-33.0); MEAN CORPUSCULAR HGB CONC 32.6 g/dl (32.0-36.5); MEAN CORPUSCULAR VOLUME 86.1 fl (80.0-96.0); MONO # 0.3 10^3/uL (0.0-0.8); MONO % 6.2 % (2.0-8.0); NEUTROPHILS # 3.4 10^3/uL (1.5-8.5); PLATELET COUNT, AUTOMATED 303 10^3/uL (150-450); RED BLOOD COUNT 4.95 10^6/uL (4.00-5.40); WHITE BLOOD COUNT 5.5 10^3/uL (4.0-10.0)
[2024-01-20] MEDS ORDERED: VENL-115 PO (14:49)
[2024-01-20 14:51] LABS: ALBUMIN 3.5 G/DL (3.2-5.2); ALKALINE PHOSPHATASE 62 U/L (46-116); ALT/SGPT 26 U/L (7.0-40); AST/SGOT 18 U/L (<34); BILIRUBIN,DIRECT 0.2 MG/DL (<0.4); BILIRUBIN,TOTAL 0.6 MG/DL (0.3-1.2); BLOOD UREA NITROGEN 14 MG/DL (9-23); CALCIUM LEVEL 9.6 MG/DL (8.3-10.6); CARBON DIOXIDE LEVEL 28 MMOL/L (20-31); CHLORIDE LEVEL 103 MMOL/L (98-107); CK-MB VALUE MASS < 1.0 NG/ML (<3.6); CPK CREATINE PHOSPHOKINASE 56 U/L (34-145); CREATININE FOR GFR 0.78 MG/DL (0.55-1.30); GLOMERULAR FILTRATION RATE > 60.0 (>45); GLUCOSE, FASTING 102 MG/DL (74-106); MB/CK RELATIVE INDEX 1.78 (< OR =4); POTASSIUM SERUM 4.1 MMOL/L (3.5-5.1); SODIUM LEVEL 136 MMOL/L (136-145); TOTAL PROTEIN 7.6 G/DL (5.7-8.2)
[2024-01-20 14:53] LABS: FREE T4 1.25 NG/DL (0.89-1.76); THYROID STIMULATING HORMONE 1.893 uIU/ML (0.55-4.78)
[2024-01-20 14:56] LABS: INR 1.44; PARTIAL THROMBOPLASTIN TIME 33.1 SECONDS (24.8-34.2)
[2024-01-20] MEDS ORDERED: ISOVUE-370 76% 100ML VIAL As Ordered ONE (15:38)
[2024-01-20] MEDS ORDERED: FURO20TA2 PO (17:44)
[2024-01-20] MEDS ORDERED: HOME MED LIST COMPLETE! XX SCH (19:20)
[2024-01-20 19:29] LABS: PROCALCITONIN <0.04 ng/ml
[2024-01-20] MEDS: MIDAZOLAM INJ 2MG/2ML VIAL IV STA (20:44)
[2024-01-21 06:03] LABS: BASO % 0.4 % (0.0-1.0); EOS # 0.1 10^3/uL (0.0-0.5); EOS % 1.9 % (0.0-3.0); HEMATOCRIT 40.4 % (36.0-47.0); LYMPH # 1.4 10^3/uL (1.5-5.0); LYMPH % 26.8 % (24.0-44.0); MEAN CORPUSCULAR HEMOGLOBIN 28.1 pg (27.0-33.0); MEAN CORPUSCULAR HGB CONC 32.2 g/dl (32.0-36.5); MEAN CORPUSCULAR VOLUME 87.3 fl (80.0-96.0); MONO # 0.3 10^3/uL (0.0-0.8); MONO % 5.6 % (2.0-8.0); NEUTROPHILS # 3.4 10^3/uL (1.5-8.5); NEUTROPHILS % 65.1 % (36.0-66.0); PLATELET COUNT, AUTOMATED 247 10^3/uL (150-450); RED BLOOD COUNT 4.63 10^6/uL (4.00-5.40); WHITE BLOOD COUNT 5.2 10^3/uL (4.0-10.0)
[2024-01-21 06:31] LABS: BLOOD UREA NITROGEN 10 MG/DL (9-23); CALCIUM LEVEL 8.9 MG/DL (8.3-10.6); CARBON DIOXIDE LEVEL 31 MMOL/L (20-31); CHLORIDE LEVEL 104 MMOL/L (98-107); CREATININE FOR GFR 0.81 MG/DL (0.55-1.30); GLOMERULAR FILTRATION RATE > 60.0 (>45); GLUCOSE, FASTING 97 MG/DL (74-106); POTASSIUM SERUM 4.2 MMOL/L (3.5-5.1); SODIUM LEVEL 137 MMOL/L (136-145)
[2024-01-21] MEDS ORDERED: OMEP-173 PO (07:18)
[2024-01-21 10:00] VITALS: BP 169/80; TEMP 96.7; O2SAT 99
[2024-01-21] MEDS: OMEPRAZOLE 20MG CAP PO SCH (10:26)
[2024-01-21] MEDS: FUROSEMIDE 20 MG TAB PO SCH (10:27)
[2024-01-21 12:00] VITALS: BP 151/67; TEMP 96.4; O2SAT 98
[2024-01-21 12:28] VITALS: BP 151/67
[2024-01-21] MEDS: amLODIPine 5 MG TAB PO ONE (12:28)
[2024-01-21 13:35] VITALS: BP 150/75
[2024-01-21] MEDS ORDERED: NORV5TAB PO (15:19)
[2024-01-21] MEDS: RIVAROXABAN 10MG TAB (XARELTO) PO SCH (17:12)
[2024-01-21] MEDS: PREVNAR-20 VACCINE 0.5ML SYRINGE IM.IMMUN ONE (17:13)
[2024-01-21] MEDS ORDERED: VENLAFAXINE **XR** 75MG CAPSULE PO SCH (21:00)
[2024-01-24] MEDS ORDERED: VITAMIN D 50,000 UNITS CAPSULE (ERGOCALCIFEROL 1.25MG) PO SCH (09:00)
[2024-01-24 23:38] LABS: LYME TOTAL ANTIBODY CIA <= 0.90 Index (<=0.90)
== END 2024-01-21 18:16 | disposition home or self-care (01) ==
LOC: EDSEX 13:34 → M ED 13:34 → EDBD 13:34 → M ED INP 13:35 → M ICU 01-21 08:27
PROVIDERS: ADMIT Internal Medicine; ATTEND Internal Medicine
DX: R55 Syncope and collapse (principal); R00.1 Bradycardia, unspecified; I10 Essential (primary) hypertension; E11.9 Type 2 diabetes mellitus without complications; G47.33 Obstructive sleep apnea (adult) (pediatric); F32.A Depression, unspecified; F41.9 Anxiety disorder, unspecified; E66.01 Morbid (severe) obesity due to excess calories; Z68.42 Body mass index [BMI] 45.0-49.9, adult; M25.519 Pain in unspecified shoulder; M54.2 Cervicalgia; M54.30 Sciatica, unspecified side; M51.36 Other intervertebral disc degeneration, lumbar region; A49.8 Other bacterial infections of unspecified site; Z98.890 Other specified postprocedural states; K21.9 Gastro-esophageal reflux disease without esophagitis; Z86.711 Personal history of pulmonary embolism; Z87.442 Personal history of urinary calculi; Z90.49 Acquired absence of other specified parts of digestive tract; Z87.891 Personal history of nicotine dependence; Z88.5 Allergy status to narcotic agent; Z88.8 Allergy status to other drugs, medicaments and biological substances; Z88.1 Allergy status to other antibiotic agents; Z79.899 Other long term (current) drug therapy; Z79.01 Long term (current) use of anticoagulants; Z23 Encounter for immunization; I50.30 Unspecified diastolic (congestive) heart failure
CPT/HCPCS: 36415; 70551; 71045; 71275; 74176; 80048; 80076; 82550; 82553; 83735; 83880; 84145; 84439; 84443; 84484; 85025; 85610; 85730; 86618; 87507; 90677; 93005; 93041; 93306; 94760; 96374; 97116; 97161; 99285; G0009; G0378; J2250; Q9967

== ENCOUNTER → 2024-04-29 | Outpatient (CLI) | payer MEDICARE, MEDICAID ==
[~2024-04-29] MED LIST changes: +FURO20TA2 PO; +NORV5TAB PO; +OMEP-173 PO; +VENL-115 PO
[2024-04-29 11:03] LABS: BASO % 0.4 % (0.0-1.0); EOS # 0.1 10^3/uL (0.0-0.5); EOS % 1.3 % (0.0-3.0); HEMATOCRIT 39.6 % (36.0-47.0); HEMOGLOBIN 13.4 g/dl (12.0-15.5); LYMPH # 1.7 10^3/uL (1.5-5.0); LYMPH % 31.5 % (24.0-44.0); MEAN CORPUSCULAR HEMOGLOBIN 29.1 pg (27.0-33.0); MEAN CORPUSCULAR HGB CONC 33.8 g/dl (32.0-36.5); MEAN CORPUSCULAR VOLUME 85.9 fl (80.0-96.0); MONO # 0.3 10^3/uL (0.0-0.8); MONO % 5.7 % (2.0-8.0); NEUTROPHILS # 3.3 10^3/uL (1.5-8.5); NEUTROPHILS % 60.9 % (36.0-66.0); PLATELET COUNT, AUTOMATED 257 10^3/uL (150-450); RED BLOOD COUNT 4.61 10^6/uL (4.00-5.40); WHITE BLOOD COUNT 5.5 10^3/uL (4.0-10.0)
[2024-04-29 11:24] LABS: HEMOGLOBIN A1c 5.1 % (4.0-6.0)
[2024-04-29 11:34] LABS: ALBUMIN 3.2 G/DL (3.2-5.2); ALKALINE PHOSPHATASE 59 U/L (35-104); ALT/SGPT 32 U/L (7.0-40); AST/SGOT 16 U/L (<34); BILIRUBIN,TOTAL 0.4 MG/DL (0.3-1.2); BLOOD UREA NITROGEN 14 MG/DL (9-23); CALCIUM LEVEL 9.7 MG/DL (8.3-10.6); CARBON DIOXIDE LEVEL 28 MMOL/L (20-31); CHLORIDE LEVEL 107 MMOL/L (98-107); CHOLESTEROL LEVEL 192 MG/DL (<200); CHOLESTEROL RISK RATIO 5.26 (<5); CREATININE FOR GFR 0.67 MG/DL (0.55-1.30); GLOMERULAR FILTRATION RATE > 60.0 (>45); GLUCOSE, FASTING 102 MG/DL (74-106); HDL CHOLESTEROL 36.5 MG/DL (>40); LDL CHOLESTEROL 132.3 MG/DL (<100); MAGNESIUM LEVEL 1.9 MG/DL (1.8-2.4); NON-HDL-C 155.5 MG/DL; POTASSIUM SERUM 3.6 MMOL/L (3.5-5.1); SODIUM LEVEL 143 MMOL/L (136-145); TRIGLYCERIDES LEVEL 116 MG/DL (<150)
[2024-04-29 11:36] LABS: THYROID STIMULATING HORMONE 1.755 uIU/ML (0.55-4.78)
[2024-04-30 08:08] LABS: LDL DIRECT 136 mg/dL (<100)
== END ==
LOC: M LAB 10:02
PROVIDERS: ATTEND Internal Medicine Cardiovascular Disease
DX: I11.0 Hypertensive heart disease with heart failure (principal); I48.0 Paroxysmal atrial fibrillation; I50.9 Heart failure, unspecified

== ENCOUNTER → 2024-06-03 | Outpatient (CLI) | payer MEDICARE, MEDICAID ==
[2024-06-03 12:12] LABS: ALBUMIN 3.4 G/DL (3.2-5.2); ALKALINE PHOSPHATASE 57 U/L (35-104); ALT/SGPT 40 U/L (7.0-40); AST/SGOT 15 U/L (<34); BILIRUBIN,TOTAL 0.4 MG/DL (0.3-1.2); BLOOD UREA NITROGEN 19 MG/DL (9-23); CARBON DIOXIDE LEVEL 32 MMOL/L (20-31); CHLORIDE LEVEL 101 MMOL/L (98-107); CHOLESTEROL LEVEL 131 MG/DL (<200); CHOLESTEROL RISK RATIO 2.99 (<5); CREATININE FOR GFR 0.75 MG/DL (0.55-1.30); GLOMERULAR FILTRATION RATE > 60.0 (>45); GLUCOSE, FASTING 109 MG/DL (74-106); HDL CHOLESTEROL 43.7 MG/DL (>40); LDL CHOLESTEROL 69.3 MG/DL (<100); MAGNESIUM LEVEL 2.1 MG/DL (1.8-2.4); NON-HDL-C 87.3 MG/DL; POTASSIUM SERUM 4.3 MMOL/L (3.5-5.1); SODIUM LEVEL 143 MMOL/L (136-145); TOTAL PROTEIN 7.8 G/DL (5.7-8.2); TRIGLYCERIDES LEVEL 90 MG/DL (<150)
== END ==
LOC: M LAB 09:51
PROVIDERS: ATTEND Internal Medicine Cardiovascular Disease
DX: I11.9 Hypertensive heart disease without heart failure (principal)

== ENCOUNTER → 2024-06-21 | Outpatient (CLI) | payer MEDICARE, MEDICAID ==
[2024-06-21 11:11] LABS: BASO % 0.5 % (0.0-1.0); EOS # 0.2 10^3/uL (0.0-0.5); EOS % 2.6 % (0.0-3.0); HEMATOCRIT 42.1 % (36.0-47.0); HEMOGLOBIN 13.9 g/dl (12.0-15.5); LYMPH # 1.6 10^3/uL (1.5-5.0); LYMPH % 26.9 % (24.0-44.0); MEAN CORPUSCULAR HEMOGLOBIN 28.8 pg (27.0-33.0); MEAN CORPUSCULAR VOLUME 87.2 fl (80.0-96.0); MONO # 0.3 10^3/uL (0.0-0.8); MONO % 5.7 % (2.0-8.0); NEUTROPHILS # 3.7 10^3/uL (1.5-8.5); NEUTROPHILS % 64.1 % (36.0-66.0); PLATELET COUNT, AUTOMATED 264 10^3/uL (150-450); RED BLOOD COUNT 4.83 10^6/uL (4.00-5.40); WHITE BLOOD COUNT 5.8 10^3/uL (4.0-10.0)
[2024-06-21 11:53] LABS: BLOOD UREA NITROGEN 14 MG/DL (9-23); CARBON DIOXIDE LEVEL 31 MMOL/L (20-31); CHLORIDE LEVEL 101 MMOL/L (98-107); CREATININE FOR GFR 0.73 MG/DL (0.55-1.30); GLOMERULAR FILTRATION RATE > 60.0 (>45); GLUCOSE, FASTING 95 MG/DL (74-106); SODIUM LEVEL 142 MMOL/L (136-145)
== END ==
LOC: M LAB 09:27
PROVIDERS: ATTEND Internal Medicine Cardiovascular Disease
DX: I11.0 Hypertensive heart disease with heart failure (principal); I48.0 Paroxysmal atrial fibrillation; I50.9 Heart failure, unspecified

== ENCOUNTER → 2025-02-03 | Outpatient (CLI) | payer MEDICARE, MEDICAID ==
[~2025-02-03] MED LIST changes: -ACE65ERTAB PO; +ACET-1593 PO; -EQL50TAB2 PO; +LIDO1ADH93 TD; -LIDO5DIS41 TD; +VITA1TAB82 PO
[2025-02-03 09:23] LABS: BASO # 0.0 10^3/uL (0.0-0.2); BASO % 0.7 % (0.0-1.0); EOS # 0.1 10^3/uL (0.0-0.5); EOS % 1.9 % (0.0-3.0); LYMPH # 1.7 10^3/uL (1.5-5.0); LYMPH % 28.9 % (24.0-44.0); MONO # 0.4 10^3/uL (0.0-0.8); MONO % 6.9 % (2.0-8.0); NEUTROPHILS # 3.6 10^3/uL (1.5-8.5); NEUTROPHILS % 61.4 % (36.0-66.0); PLATELET COUNT, AUTOMATED 231 10^3/uL (150-450)
[2025-02-03 09:28] LABS: ESTIMATED AVERAGE GLUCOSE 111.0 MG/DL (60-110)
[2025-02-03 09:41] LABS: CREATININE, URINE 162.7 MG/DL; MALB URINE SIEMENS < 3.0 MG/L
[2025-02-03 09:44] LABS: ALT/SGPT 29.0 U/L (7.0-40); AST/SGOT 24.0 U/L (<34); CALCIUM LEVEL 9.3 MG/DL (8.3-10.6); CARBON DIOXIDE LEVEL 31.0 MMOL/L (20-31); CHLORIDE LEVEL 102.0 MMOL/L (98-107); CHOLESTEROL LEVEL 123.0 MG/DL (<200); CHOLESTEROL RISK RATIO 2.85 (<5); CREATININE FOR GFR 0.83 MG/DL (0.55-1.30); GLOMERULAR FILTRATION RATE 75.8 (>39); LDL CHOLESTEROL 53.1 MG/DL (<100); NON-HDL-C 79.9 MG/DL; POTASSIUM SERUM 4.1 MMOL/L (3.5-5.1); SODIUM LEVEL 143.0 MMOL/L (136-145); TRIGLYCERIDES LEVEL 134.0 MG/DL (<150)
[2025-02-03 09:45] LABS: TOTAL 25(OH) VITAMIN D 73.6 NG/ML (20.0-100.0)
== END ==
LOC: M LAB 08:12
PROVIDERS: ATTEND Family Medicine
DX: E11.69 Type 2 diabetes mellitus with other specified complication (principal); E55.9 Vitamin D deficiency, unspecified